=== PATIENT | female | born 1935 | race Caucasian/White ===

== ENCOUNTER 2020-08-15 21:30 | Inpatient (IN) | payer OTHER, SELFPAY ==
[~2020-08-15] VITALS: Ht 165.1 cm; Wt 77.1 kg
--- NOTE | 2020-08-15 21:32 | NUR ---
PT DINORA ALS. TAKEN TO BED 1
[2020-08-15 21:42] VITALS: BP 144/63
--- NOTE | 2020-08-15 22:09 | NUR ---
xr at bedside.
--- NOTE | 2020-08-15 22:14 | NUR ---
Dr. Corley with pt for MSE
--- NOTE | 2020-08-15 22:19 | NUR ---
pt taken to ct via zackery
[2020-08-15] MEDS ORDERED: NACL 0.9% 1,000 ML IV ONE (22:20)
[2020-08-15 22:29] LABS: HEMOGLOBIN 14.6 g/dL (12.0-16.0); PLATELET COUNT (AUTO) 289 K/uL (140-450)
[2020-08-15 22:30] LABS: APPEARANCE,URINE CLEAR (CLEAR); BILIRUBIN,URINE NEGATIVE (NEGATIVE); BLOOD, URINE NEGATIVE (NEGATIVE); COLOR,URINE YELLOW (YELLOW); LEUKOCYTE ESTERASE ,URINE NEGATIVE (NEGATIVE); NITRITE, URINE NEGATIVE (NEGATIVE); PH,URINE 5.5 (5.0-9.0); UGLUCOSE TRACE (NEGATIVE)
[2020-08-15 22:33] LABS: BASOPHILS # (AUTO) 0.1 K/uL (0.00-0.22); BASOPHILS % (AUTO) 0.9 % (0.0-2.0); EOSINOPHILS # (AUTO) 0.2 K/uL (0-0.4); EOSINOPHILS % (AUTO) 2.5 % (0.0-4.0); HEMATOCRIT 41.7 % (36-48); LYMPHOCYTES # (AUTO) 1.6 K/uL (2.5-16.5); LYMPHOCYTES % (AUTO) 21.5 % (20.5-51.1); MEAN CORPUSCULAR HEMOGLOBIN 31 pg (27-31); MEAN CORPUSCULAR HGB CONC 35 g/dL (33-37); MEAN CORPUSCULAR VOLUME 88.3 fL (80-94); MONOCYTES # (AUTO) 0.8 K/uL (0.8-1.0); MONOCYTES % (AUTO) 11.2 % (1.7-9.3); NEUTROPHILS # (AUTO) 4.7 K/uL (1.8-7.7); NEUTROPHILS % (AUTO) 63.9 % (42.2-75.2); RED BLOOD CELL COUNT(AUTO) 4.72 MIL/uL (4.20-5.40); RED CELL DISTRIBUTION WIDTH 12.3 % (11.6-13.7); WHITE BLOOD COUNT (AUTO) 7.3 K/uL (4.8-10.8)
[2020-08-15 22:41] LABS: BARBITURATE, URINE NEGATIVE ng/ml (NEG <=200); BENZODIAZEPINE, URINE NEGATIVE ng/mL (NEG <=200); CANNABINOID, URINE NEGATIVE ng/mL (NEG <=50); COCAINE, URINE NEGATIVE ng/mL (NEG <=300); OPIATE, URINE NEGATIVE ng/mL (NEG <=2000); PHENCYCLIDINE SCREEN,URINE NEGATIVE ng/mL (NEG <=25)
[2020-08-15 22:48] LABS: RBC,URINE 0-5 /HPF (0-5); WBC,URINE 0-5 /HPF (0-5)
[2020-08-15 22:50] LABS: ALBUMIN 3.7 g/dL (3.4-5.0); ANION GAP 10.1 (8-16); ASPARTATE AMINOTRANSFERASE 21 U/L (15-37); CHLORIDE 94 mmol/L (98-107); GLUCOSE 135 mg/dL (74-106); LIPASE 131 U/L (73-393); MAGNESIUM 2.6 mg/dL (1.8-2.4); PHOSPHORUS 5.1 mg/dL (2.5-4.9); POTASSIUM 3.1 mmol/L (3.5-5.1); SODIUM SERUM 130 mmol/L (136-145); TOTAL BILIRUBIN 0.4 mg/dL (0.0-1.0)
[2020-08-15 22:57] LABS: SALICYLATE < 2.8 mg/dL (2.8-20.0)
[2020-08-15 22:58] LABS: CREATININE 4.1 mg/dL (0.6-1.3); UREA NITROGEN, BLOOD 80 mg/dL (7-18)
--- NOTE | 2020-08-15 23:03 | NUR ---
christiana Tirado from [facility] to give report on pt.
[2020-08-15] MEDS ORDERED: SYN.05 PO (23:26)
[2020-08-15] MEDS ORDERED: ISOS60TE70 PO (23:26)
[2020-08-15] MEDS ORDERED: BIOT5000 PO (23:26)
[2020-08-15] MEDS ORDERED: LANTUS SC (23:26)
[2020-08-15] MEDS ORDERED: PANT40EC PO (23:26)
[2020-08-15] MEDS ORDERED: CLOP75TA26 PO (23:26)
[2020-08-15] MEDS ORDERED: NEBI10TA PO (23:28)
[2020-08-15] MEDS ORDERED: LOSA100T1 PO (23:28)
[2020-08-15] MEDS ORDERED: [UNRECOGNIZED DRUG - CODE] PO (23:28)
[2020-08-15] MEDS ORDERED: TTS3 TD (23:28)
--- NOTE | 2020-08-15 23:46 | NUR ---
report given to Jcarols MEZA from [facility] unit. pt currently a/o x 2, gcs 14. IV site patent. will be admitted to room 110B under the care of Dr. Partida.
[2020-08-15 23:54] LABS: ACETAMINOPHEN < 0.5 ug/ml (10-30)
[2020-08-16] MEDS ORDERED: ONDANSETRON 4 MG/2 ML VIAL IM/IVP PRN (00:20)
[2020-08-16] MEDS ORDERED: ZOLPIDEM 5 MG TAB PO PRN (00:20)
[2020-08-16] MEDS ORDERED: DOCUSATE SODIUM 100 MG GELCAP PO PRN (00:20)
[2020-08-16] MEDS ORDERED: HYDROcodone/APAP 7.5/325 MG 1 TAB PO PRN (00:20)
[2020-08-16] MEDS ORDERED: ACETAMINOPHEN 325 MG TAB PO PRN (00:20)
[2020-08-16] MEDS ORDERED: guaiFENesin DM 200/20 MG-10 ML 10 ML UDC PO PRN (00:20)
--- NOTE | 2020-08-16 00:30 | NUR ---
PT ADMITTED TO THE UNIT FROM ED. PATIENT AWAKE AND ALERT. PT ONLY ORIENTED TO SELF AND PLACE. PT DENIES ANY PAIN. PT RECEIVING 2L O2 VIA NC. O2 SAT 98% AT THIS TIME. NO SOB OR S/S OF DISTRESS NOTED. PT PLACED ON TELE MONITORING. BED LOWERED WITH CALL LIGHT WITHIN REACH
[2020-08-16 00:47] LABS: PROTHROMBIN TIME 9.4 secs (10.8-13.4)
[2020-08-16 00:56] LABS: CHOL/HDL RATIO 6.3 (1-4.5); FREE T4 (FREE THYROXINE) 1.14 ng/dL (0.76-1.46); THYROID STIMULATING HORMONE 1.58 uIU/mL (0.34-3.74)
[2020-08-16] MEDS: DEXT 5% / NACL 0.9% 1,000 ML IV SCH ×2 (00:56→09:40)
[2020-08-16 01:00] VITALS: BP 122/62
[2020-08-16] MEDS: POTASSIUM CHLORIDE 10 MEQ TABER PO PRN (01:41)
[2020-08-16 04:30] VITALS: BP 146/63
--- NOTE | 2020-08-16 04:50 | NUR ---
ASSISTED PATIENT TO THE BATHROOM. PT VOIDED WITHOUT ANY DIFFICULTY
--- NOTE | 2020-08-16 07:25 | NUR ---
PT REPORT GIVEN TO AM NURSE. PT ENDORSED IN STABLE CONDITION
--- NOTE | 2020-08-16 07:26 | NUR ---
REPORT RECEIVED FROM FIRE PREVENTION CAPTAIN RN AT BEDSIDE FOR CONTINUITY OF CARE. PATIENT AWAKE AND ALERT. PT ONLY ORIENTED TO SELF AND PLACE. PT DENIES ANY PAIN. PT ON RA, O2 SAT 98% AT THIS TIME. NO SOB OR S/S OF DISTRESS NOTED. PT PLACED ON TELE MONITORING. BED LOWERED WITH CALL LIGHT WITHIN REACH, WILL CONTINUE TO MONITOR PATIENT.
[2020-08-16 08:10] VITALS: BP 150/70
[2020-08-16] MEDS: PANTOPRAZOLE 40 MG TABEC PO SCH (09:23)
--- NOTE | 2020-08-16 09:23 | NUR ---
ORDERED MEDICATION GIVEN. PATIENT TOLERATED IT. PATIENT CURRENTLY SITTING UP IN BED EATING BREAKFAST, NO COMPLAINTS AT THIS TIME. SAFETY PRECAUTIONS IN PLACE, CALL LIGHT WITHIN REACH, WILL CONTINUE TO MONITOR PATIENT.
[2020-08-16 09:52] LABS: BASOPHILS % (AUTO) 0.4 % (0.0-2.0); EOSINOPHILS # (AUTO) 0.1 K/uL (0-0.4); EOSINOPHILS % (AUTO) 2.3 % (0.0-4.0); HEMATOCRIT 38.7 % (36-48); HEMOGLOBIN 13.1 g/dL (12.0-16.0); LYMPHOCYTES # (AUTO) 1.6 K/uL (2.5-16.5); LYMPHOCYTES % (AUTO) 26.1 % (20.5-51.1); MEAN CORPUSCULAR HEMOGLOBIN 31 pg (27-31); MEAN CORPUSCULAR HGB CONC 34 g/dL (33-37); MONOCYTES # (AUTO) 0.7 K/uL (0.8-1.0); MONOCYTES % (AUTO) 11.7 % (1.7-9.3); NEUTROPHILS # (AUTO) 3.6 K/uL (1.8-7.7); NEUTROPHILS % (AUTO) 59.5 % (42.2-75.2); PLATELET COUNT (AUTO) 259 K/uL (140-450); RED BLOOD CELL COUNT(AUTO) 4.26 MIL/uL (4.20-5.40); RED CELL DISTRIBUTION WIDTH 12.5 % (11.6-13.7); WHITE BLOOD COUNT (AUTO) 6.1 K/uL (4.8-10.8)
[2020-08-16 10:26] LABS: CARBON DIOXIDE 25.7 mmol/L (21-32); CHLORIDE 99 mmol/L (98-107); GLUCOSE 201 mg/dL (74-106); POTASSIUM 3.7 mmol/L (3.5-5.1); SODIUM SERUM 135 mmol/L (136-145)
[2020-08-16 10:35] LABS: UREA NITROGEN, BLOOD 69 mg/dL (7-18)
--- NOTE | 2020-08-16 10:45 | NUR ---
GRANDDAUGHTER AT BEDSIDE. PT RESTING IN BED, NO COMPLAINTS AT THIS TIME. TRANSFERRED TO [facility], TELE BOX REMOVED. CALL LIGHT WITHIN REACH, WILL CONTINUE TO MONITOR PATIENT.
--- NOTE | 2020-08-16 14:05 | NUR ---
PATIENT CURRENTLY GETTING US OF KIDNEYS DONE. WILL WAIT FOR RESULTS.
[2020-08-16 16:00] VITALS: BP 158/81
--- NOTE | 2020-08-16 16:45 | NUR ---
PT ACCIDENTALLY DISLODGE IV WHILE ATTEMPTING TO GET OUT OF BED TO GO TO BATHROOM. NEW IV INSERTED ON LEFT WRIST 22G, INTACT, ASYMPTOMATIC, PATENT, INFUSING IVF WELL. PT TOLERATED IT. WILL CONTINUE TO MONITOR PATIENT.
--- NOTE | 2020-08-16 19:05 | NUR ---
REPORT GIVEN AT BEDSIDE. PT SITTING UP IN BED EATING DINNER. PT IN STABLE CONDITION.
--- NOTE | 2020-08-16 20:00 | NUR ---
RECEIVED PATIENT ALERT AND VERBAL BUT CONFUSED ALWAYS TRYING TO GET OUT OF HER BED, GOES BACK AND FORTH THE RESTROOM.
--- NOTE | 2020-08-16 20:30 | NUR ---
BP WAS ELEVATED AT 198/79 MMHG, REPORTED TO Kerry, ORDERED HYDRALAZINE 10 MG IVP, BUT PATIENT WAS ALLERGY WITH IT, ORDER WAS CHANGED TO LOSARTAN 100 MG/TAB X1 AND CONTINUE ALL HER HOME MEDICATIONS NOTED AND CARRIED OUT. CALLED IN TO [facility] TO BE VERIFIED.
[2020-08-16] MEDS ORDERED: LOSARTAN 50 MG TAB PO SCH (22:05)
--- NOTE | 2020-08-16 23:00 | NUR ---
LOSARTAN 100 MG/TAB X1 WAS FINALLY VERIFIED, GIVEN BY MOUTH, AMBIEN 5 MG/TAB WAS ALSO GIVEN, TOLERATED WELL BY THE PATIENT. PATIENT HAS BEEN TRAVELING BACK AND FORTH TO THE RESTROOM EVERY 15 MINUTES TO PEE., URINE SAMPLE WAS COLLECTED AND SENT TO THE LAB.
[2020-08-16] MEDS: LOSARTAN 50 MG TAB PO SCH (23:10)
--- NOTE | 2020-08-17 | NUR ---
BED ALARM GOES OFF, PATIENT WAS TRYING TO GET UP AGAIN TO USE THE BATH ROOM.
[2020-08-17 01:02] LABS: URINE TOTAL PROTEIN 8.4 mg/dL (0-12)
--- NOTE | 2020-08-17 01:44 | NUR ---
PATIENT GOT UP TO USE THE BATHROOM AGAIN.
--- NOTE | 2020-08-17 02:49 | NUR ---
PATIENT GOT UP TO USE THE BATHROOM AGAIN.
[2020-08-17] MEDS: DEXT 5% / NACL 0.9% 1,000 ML IV SCH ×2 (05:40→15:40)
[2020-08-17 06:28] LABS: BASOPHILS % (AUTO) 0.2 % (0.0-2.0); EOSINOPHILS # (AUTO) 0.1 K/uL (0-0.4); EOSINOPHILS % (AUTO) 1.1 % (0.0-4.0); HEMATOCRIT 45.8 % (36-48); HEMOGLOBIN 15.7 g/dL (12.0-16.0); LYMPHOCYTES # (AUTO) 1.3 K/uL (2.5-16.5); LYMPHOCYTES % (AUTO) 18.1 % (20.5-51.1); MEAN CORPUSCULAR HEMOGLOBIN 31 pg (27-31); MEAN CORPUSCULAR HGB CONC 34 g/dL (33-37); MEAN CORPUSCULAR VOLUME 91.3 fL (80-94); MONOCYTES # (AUTO) 0.9 K/uL (0.8-1.0); MONOCYTES % (AUTO) 12.2 % (1.7-9.3); NEUTROPHILS # (AUTO) 4.9 K/uL (1.8-7.7); NEUTROPHILS % (AUTO) 68.4 % (42.2-75.2); PLATELET COUNT (AUTO) 303 K/uL (140-450); RED BLOOD CELL COUNT(AUTO) 5.02 MIL/uL (4.20-5.40); RED CELL DISTRIBUTION WIDTH 12.4 % (11.6-13.7); WHITE BLOOD COUNT (AUTO) 7.2 K/uL (4.8-10.8)
[2020-08-17] MEDS ORDERED: LEVOTHYROXINE 0.05 MG TAB PO SCH (06:30)
[2020-08-17 06:57] LABS: CARBON DIOXIDE 28.6 mmol/L (21-32); CHLORIDE 105 mmol/L (98-107); CREATININE 1.5 mg/dL (0.6-1.3); GLUCOSE 185 mg/dL (74-106); POTASSIUM 3.6 mmol/L (3.5-5.1); SODIUM SERUM 143 mmol/L (136-145); UREA NITROGEN, BLOOD 31 mg/dL (7-18)
--- NOTE | 2020-08-17 07:25 | NUR ---
ALL REPORTS WERE GIVEN, TRANSFER OF CARE ENDORSED.
[2020-08-17 08:06] LABS: T4 (THYROXINE) 8.4 ug/dL (4.5-12.0)
[2020-08-17] MEDS ORDERED: DEXTROSE 50% 50 ML SYR IVP PRN (08:50)
[2020-08-17] MEDS: LOSARTAN 50 MG TAB PO SCH (08:51)
[2020-08-17] MEDS: PANTOPRAZOLE 40 MG TABEC PO SCH (08:51)
[2020-08-17] MEDS: CLOPIDOGREL 75 MG TAB PO SCH (08:51)
[2020-08-17] MEDS: INSULIN LANTUS 100 UNITS/ML 10 ML VIAL SUBQ SCH (08:54)
[2020-08-17] MEDS ORDERED: BIOTIN PO SCH (09:00)
[2020-08-17] MEDS ORDERED: NON-FORMULARY ITEM (Isosorbide Mononitrate (Isosorbide Mononitrate ER) 1 TAB) PO SCH (09:00)
[2020-08-17] MEDS ORDERED: ISOSORBIDE MONONITRATE 30 MG TABER PO SCH ×2 (09:00→18:26)
[2020-08-17] MEDS ORDERED: NEBIVOLOL HCL PO SCH (09:00)
[2020-08-17] MEDS ORDERED: PANTOPRAZOLE 40 MG TABEC PO SCH (09:00)
[2020-08-17] MEDS ORDERED: TOLTERODINE TARTRATE PO SCH (09:00)
[2020-08-17] MEDS ORDERED: cloNIDine-TTS3 0.3 MG/24 HR 1 EA PATCH TD SCH (09:00)
[2020-08-17] MEDS ORDERED: LABETALOL 100 MG/20 ML VIAL IV SCH (09:00)
--- NOTE | 2020-08-17 09:05 | NUR ---
PATIENT HAS BEEN SCREENED AND CATEGORIZED MODERATE NUTRITION RISK. PATIENT WILL BE SEEN WITHIN 3-5 DAYS OF ADMISSION. 08/18/20 08/20/[address]
[2020-08-17 10:37] VITALS: BP 220/78
[2020-08-17] MEDS: BLOOD GLUCOSE MONITORING 1 DEV DEV FS SCH ×3 (11:30→21:00)
[2020-08-17 12:30] VITALS: BP 197/86
[2020-08-17] MEDS: INSULIN LISPRO SLIDING SCALE 100 UNITS/ML VIAL SUBQ PRN ×2 (12:59→20:38)
[2020-08-17] MEDS: LABETALOL 200 MG TAB PO SCH ×2 (13:01→17:56)
--- NOTE | 2020-08-17 16:53 | NUR ---
alert, wide awake, but confused and very disoriented. Reoriented, aware now she is in the hospital, but did not know the name and why able to walk to bathroom, with standby assistance, gait slow but steadyd. 1600, pulled out her iv. 1630 new HL placed on LFA #22, after 2 attemtps. Now asleep.
[2020-08-17 17:40] VITALS: BP 164/85
--- NOTE | 2020-08-17 18:06 | NUR ---
oncoming shift made aware LEVOTHYROXINE HELD FOR 08/18, 08/19
--- NOTE | 2020-08-17 19:30 | NUR ---
RECEIVED REPORT FROM RN DAYSHIFT NURSE AT BEDSIDE FOR CONTINUITY OF CARE, PT LYING IN BED SLEEPING SHE IS ON ROOM AIR WITH IV SITE LEFT F/A 22G INTACT AND RUNNING D5 NORMAL SALINE AT 100MLS/HR. ALL FALLS PRECAUTIONS IN PLACE.
--- NOTE | 2020-08-17 20:00 | NUR ---
PT RECEIVED A VISITOR AT BEDSIDE, FINGERSTICK IS 224. OTHER V/S FOLLOWS: T 97.9 P 83 R 16 B/P 212/81 02 98% ON ROOM AIR. IV FLUIDS OF D5 N/S RUNNING AT 100MLS/HR. ALL FALLS PRECAUTIONS IN PLACE.
--- NOTE | 2020-08-17 20:45 | NUR ---
PT WAS GIVEN 4 UNITS OF HUMALOG PER S/S. PT ALSO GIVEN ORDERED IMDUR 60MG EXTENDED RELEASE TABS. EDUCATION PROVIDED TO PT WHO WITH REINFORCEMENT VERBALIZED UNDERSTANDING. IV FLUIDS RUNNING ORDERED. ALL FALLS PRECAUTIONS IN PLACE.
--- NOTE | 2020-08-17 21:00 | NUR ---
PT AND BELONGINGS MOVED TO ROOM 123A.
--- NOTE | 2020-08-17 23:00 | NUR ---
PT IN BED ASLEEP IV SITE INTACT AND RUNNING D5N/S ORDERED. ALL FALLS PRECAUTIONS IN PLACE.
[2020-08-18] VITALS: BP 112/84
--- NOTE | 2020-08-18 00:15 | NUR ---
FLUID BAG OF D5NS REPLACED AND RUNNING ORDERED. V/S FOLLOWS: T 97.8 P 71 R 18 B/P 133/80 02 94% ON ROOM AIR. PT CONTINUES TO SLEEP RESPIRATIONS EVEN AND UNLABORED ON ROOM AIR, ALL FALLS PRECAUTIONS IN PLACE.
[2020-08-18] MEDS: DEXT 5% / NACL 0.9% 1,000 ML IV SCH ×4 (01:40→23:30)
[2020-08-18 04:00] VITALS: BP 189/94
--- NOTE | 2020-08-18 04:45 | NUR ---
PT B/P WAS HIGH AT 189/94, CALLED VANITA CANSECO TO GIVEN AM BLOOD PRESSURE MEDS EARLY.
[2020-08-18 05:17] LABS: BASOPHILS % (AUTO) 0.3 % (0.0-2.0); EOSINOPHILS # (AUTO) 0.1 K/uL (0-0.4); EOSINOPHILS % (AUTO) 0.8 % (0.0-4.0); HEMATOCRIT 42.5 % (36-48); HEMOGLOBIN 14.4 g/dL (12.0-16.0); LYMPHOCYTES # (AUTO) 1.5 K/uL (2.5-16.5); LYMPHOCYTES % (AUTO) 18.4 % (20.5-51.1); MEAN CORPUSCULAR HEMOGLOBIN 31 pg (27-31); MEAN CORPUSCULAR HGB CONC 34 g/dL (33-37); MEAN CORPUSCULAR VOLUME 91.4 fL (80-94); MONOCYTES % (AUTO) 11.5 % (1.7-9.3); NEUTROPHILS # (AUTO) 5.7 K/uL (1.8-7.7); PLATELET COUNT (AUTO) 272 K/uL (140-450); RED BLOOD CELL COUNT(AUTO) 4.65 MIL/uL (4.20-5.40); RED CELL DISTRIBUTION WIDTH 12.6 % (11.6-13.7); WHITE BLOOD COUNT (AUTO) 8.3 K/uL (4.8-10.8)
[2020-08-18 05:32] LABS: ANION GAP 10.2 (8-16); CARBON DIOXIDE 31.4 mmol/L (21-32); CHLORIDE 104 mmol/L (98-107); CREATININE 1.4 mg/dL (0.6-1.3); GLUCOSE 238 mg/dL (74-106); POTASSIUM 3.6 mmol/L (3.5-5.1); SODIUM SERUM 142 mmol/L (136-145); UREA NITROGEN, BLOOD 27 mg/dL (7-18)
[2020-08-18] MEDS ORDERED: ISOSORBIDE MONONITRATE 30 MG TABER PO ONE (06:18)
[2020-08-18] MEDS: INSULIN LISPRO SLIDING SCALE 100 UNITS/ML VIAL SUBQ PRN ×4 (06:22→20:13)
[2020-08-18] MEDS: BLOOD GLUCOSE MONITORING 1 DEV DEV FS SCH ×4 (06:26→20:08)
[2020-08-18] MEDS: LOSARTAN 50 MG TAB PO SCH (06:27)
[2020-08-18] MEDS: ISOSORBIDE MONONITRATE 30 MG TABER PO SCH ×2 (06:28→20:09)
[2020-08-18] MEDS: LABETALOL 200 MG TAB PO SCH ×3 (06:29→16:55)
[2020-08-18] MEDS ORDERED: LEVOTHYROXINE 0.05 MG TAB PO SCH (06:30)
--- NOTE | 2020-08-18 07:35 | NUR ---
RECEIVED REPORT FROM TRUCK ENGINE ASSEMBLER NURSE. PT IN BED RESTING. PT NOT IN DISTRESS. RESPIRATIONS EVEN AND UNLABORED TO ROOM AIR. ABDOMEN IS SOFT AND NON-TENDER, BOWEL SOUNDS NOTED. SKIN IS WARM, DRY, AND INTACT. PT WITH IV ACCESS ON L FOREARM G22 PATENT AND INTACT. PT DENIES ANY PAIN OR DISCOMFORT AT THIS TIME. NO REQUESTS MADE. PT KEPT COMFORTABLE. CALL LIGHT WITHIN REACH. WILL CONTINUE TO MONITOR.
[2020-08-18 08:00] VITALS: BP 190/92
[2020-08-18] MEDS: TOLTERODINE LA 4 MG CAPER PO SCH (09:03)
[2020-08-18] MEDS: CLOPIDOGREL 75 MG TAB PO SCH (09:04)
[2020-08-18] MEDS: PANTOPRAZOLE 40 MG TABEC PO SCH (09:04)
[2020-08-18] MEDS: INSULIN LANTUS 100 UNITS/ML 10 ML VIAL SUBQ SCH (09:09)
--- NOTE | 2020-08-18 09:10 | NUR ---
VS TAKEN. BP 190/92 HR 90. MD MADE AWARE, ORDER RECEIVED. SCHEDULED MEDS GIVEN ORDERED. WILL CONTINUE TO MONITOR.
[2020-08-18] MEDS ORDERED: LABETALOL 100 MG/20 ML VIAL IVP SCH (09:30)
--- NOTE | 2020-08-18 10:19 | NUR ---
PT AT BEDSIDE
--- NOTE | 2020-08-18 10:50 | NUR ---
REASSESSMENT MADE. BP 193/96 HR 81. MD MADE AWARE, ORDERS RECEIVED. WILL CONTINUE TO MONITOR.
[2020-08-18] MEDS ORDERED: FUROSEMIDE 20 MG TAB PO SCH (11:05)
[2020-08-18] MEDS ORDERED: FUROSEMIDE 20 MG/2 ML VIAL IVP SCH (11:30)
[2020-08-18 12:00] VITALS: BP 210/96
--- NOTE | 2020-08-18 12:04 | NUR ---
DC PLANING: SPOKE WITH PATIENTS DAUGHTER VANITA AND DAUGHTER IN LAW RNOAL BANDA BY PHONE. PATIENT ADMITTED TO [facility] ON 08/09, LEFT AMA ON 08/10. FOLLOWED UP WITH HER PCP ON 08/11, WAS MANAGING WITH LIMITED ASSISTANCE WITH ADL'S AND AMBULATION. DAUGHTER VANITA HAS ASSISTED PATIENT IN HOME FOR YEARS PER HER STATEMENT, ALSO STATES PATIENT WAS ON SERVICE WITH HOSPICE FROM 08/13 TO 08/15. PATIENTS DAUGHTER IN LAW VILLEDA STATES THAT PATIENTS SON PINO IS THE DECISION MAKER, ASKS CM TO SPEAK WITH HER REGARDING DISCHARGE PLANING. DAUGHTER VANITA AND RONAL IN AGREEMENT WITH SNF PLACEMENT, WANTED SPECIFICS ON LENGTH OF STAY AND OUT OF POCKET COST. CM ENDORSED THAT THEY SHOULD SPEAK WITH THE ACCEPTING SNF, HALF AN HOUR SPENT EXPLAINING THAT SNF WOULD HAVE THE DETAILED ANSWERS THEY WANT, VANITA AND RONAL CONTINUED TO STATE THAT THEY HAVE BEEN TOLD THAT PATIENT WILL HAVE 90 DAYS OF MEDICARE COVERED CARE IN THE SNF, CM HAD TO EXPLAIN THAT SKILLED NEED WAS A FACTOR. VANITA AND RONAL REPEATEDLY EXPRESSED THEIR FRUSTRATION REGARDING THIS INFORMATION AND STATED THAT THEY THOUGHT THEY WOULD BE GIVEN MORE INFORMATION ABOUT LOS AND COVERAGE AT SNF. CM AGAIN LET THEM KNOW THAT MEDICARE WILL COVER SKILLED SERVICES AND GAVE THEM AN EXPLANATION OF THAT BUT REITERATED THAT THE SNF WOULD GIVE THEM MORE DETAILED INFORMATION ON LOS OF STAY AND THEIR FINANCIAL RESPONSIBILITY. CONVERSATION ENDED WITH RONAL ASKING THAT CM SPEAK WITH HER REGARDING SNF ACCEPTANCE AND DC ARRANGEMENTS. CM WILL CONTINUE TO FOLLOW FOR NEEDS. Addendum: 08/19/20 at 1247 by Elizabeth Rodgers CM DC PLANNING: SPOKE WITH PATIENTS DAUGHTER IN LAW VILLEDA MULTIPLE TIMES, ORIGINALLY CHOSE [facility] FOR PATIENT PLACEMENT, THEN [facility] AND FINALLY CHOSE [facility]. ENDORSED TO NURSING FERMENTATION SCIENTIST TIME BY GURNEY TRANSPORT ARRANGED BY SNF OF 2:30, PATIENT WILL GO TO ROOM 19. NUMBER TO CALL REPORT IS [phone]. SPOKE WITH PATIENTS SECONDARY, CONFIRMED THAT THEY COVER PATIENTS SNF STAY 100% WITHOUT COPAYS OR DEDUCTIBLES FROM DAY 21 THROUGH 60. AFTER DAY 60 NO COVERAGE, RONAL STATES SHE IS AWARE. CM WILL CONTINUE TO FOLLOW FOR NEEDS.
--- NOTE | 2020-08-18 12:17 | NUR ---
PT EATING LUNCH AT BEDSIDE. SCHEDULED MEDS GIVEN ORDERED. PT DENIES ANY PAIN OR DISTRESS AT THIS TIME. WILL CONTINUE TO MONITOR.
--- NOTE | 2020-08-18 14:20 | NUR ---
PT VOMITING. PRN ZOFRAN GIVEN ORDERED. WILL CONTINUE TO MONITOR.
[2020-08-18 16:00] VITALS: BP 220/103
--- NOTE | 2020-08-18 16:44 | NUR ---
BP 220/[address] WATSON MADE AWARE. INCREASED LABETALOL DOSE AND INSTRUCTED TO GIVE SCHEDULED. PT DENIES ANY DIZZINESS OR CHEST PAIN AT THIS TIME. WILL CONTINUE TO MONITOR.
--- NOTE | 2020-08-18 18:32 | NUR ---
PT EATING DINNER. REASSESSMENT DONE. BP 152/78, HR 77. PT DENIES ANY PAIN OR DISCOMFORT.
--- NOTE | 2020-08-18 19:20 | NUR ---
ENDORSED TO JOHN MEZA FOR CONTINUITY OF CARE
--- NOTE | 2020-08-18 19:25 | NUR ---
RECIEVED BEDSIDE ENDORSEMENT FROM DAY SHIFT RN, PT LYING IN BED EATING DINNER AND RESTING, A&0X2/3, ABLE TO MAKE NEEDS KNOWN AND FOLLOWS COMMANDS, SR ON MONITOR, ON ROOM AIR, VSS, AFEBRILE, SKIN WARM DRY AND INTACT, INCONTINENT, ABLE TO USE RESTROOM WITH ASSISTANCE, LFA 22 G PIV INFUSING D5 NS @ 100MLS/HR, PT SHOWING NO SIGNS OF ACUTE DISTRESS, SAFETY MEASURES IN PLACE, WILL CONTINUE WITH CURRENT POC
[2020-08-18 20:00] VITALS: BP 159/76
--- NOTE | 2020-08-18 20:10 | NUR ---
ADMINISTERED 2100H MEDICATIONS PER MD ORDERS, BLOOD GLUCOSE 250, ADMINISTERED 4 UNITS HUMALOG PER PROTOCOL
--- NOTE | 2020-08-18 23:15 | NUR ---
PT RESTING AND WATCHING TV, NO SIGNS OF ACUTE DISTRESS
[2020-08-19] VITALS: BP 159/69
--- NOTE | 2020-08-19 02:03 | NUR ---
PT ASLEEP AND SHOWING NO SIGNS OF ACUTE DISTRESS
[2020-08-19 04:00] VITALS: BP 105/63
--- NOTE | 2020-08-19 04:21 | NUR ---
PT ASLEEP AND SHOWING NO SIGNS OF ACUTE DISTRESS
[2020-08-19 05:30] LABS: BASOPHILS % (AUTO) 0.4 % (0.0-2.0); EOSINOPHILS # (AUTO) 0.3 K/uL (0-0.4); EOSINOPHILS % (AUTO) 3.4 % (0.0-4.0); HEMATOCRIT 38.6 % (36-48); LYMPHOCYTES # (AUTO) 2.5 K/uL (2.5-16.5); LYMPHOCYTES % (AUTO) 28.6 % (20.5-51.1); MEAN CORPUSCULAR HEMOGLOBIN 31 pg (27-31); MEAN CORPUSCULAR HGB CONC 34 g/dL (33-37); MONOCYTES % (AUTO) 10.9 % (1.7-9.3); NEUTROPHILS % (AUTO) 56.7 % (42.2-75.2); PLATELET COUNT (AUTO) 244 K/uL (140-450); RED BLOOD CELL COUNT(AUTO) 4.19 MIL/uL (4.20-5.40); RED CELL DISTRIBUTION WIDTH 12.6 % (11.6-13.7); WHITE BLOOD COUNT (AUTO) 8.7 K/uL (4.8-10.8)
--- NOTE | 2020-08-19 06:12 | NUR ---
BLOOD GLUCOSE 136, NO COVERAGE NEEDED, PT SHOWING NO SIGNS OF ACUTE DISTRESS
[2020-08-19 06:16] LABS: CARBON DIOXIDE 28.3 mmol/L (21-32); CHLORIDE 107 mmol/L (98-107); CREATININE 1.2 mg/dL (0.6-1.3); GLUCOSE 162 mg/dL (74-106); POTASSIUM 3.3 mmol/L (3.5-5.1); SODIUM SERUM 142 mmol/L (136-145); UREA NITROGEN, BLOOD 20 mg/dL (7-18)
[2020-08-19] MEDS: BLOOD GLUCOSE MONITORING 1 DEV DEV FS SCH ×2 (06:21→11:27)
--- NOTE | 2020-08-19 07:14 | NUR ---
ENDORSED TO DAY SHIFT RN FOR CONTINUITY OF CARE
--- NOTE | 2020-08-19 07:15 | NUR ---
PT RECEIVED FROM COMPO CONVEYOR OPERATOR RN. NO S/S OF DISTRESS. PT ON HIGH FLOW O2 AT 30L, FIO2 55. PT O2 SAT 98. ALL SAFETY MEASURES ARE IN PLACE. CALL LIGHT WITHIN REACH.
[2020-08-19 08:00] VITALS: BP_SYST 113; BP_SYST 190; BP_DIAS 71; BP_DIAS 89
[2020-08-19] MEDS ORDERED: FUROSEMIDE 20 MG TAB PO SCH ×2 (09:00)
[2020-08-19] MEDS ORDERED: ATORVASTATIN 20 MG TAB PO SCH (09:00)
[2020-08-19] MEDS: LOSARTAN 50 MG TAB PO SCH (09:08)
[2020-08-19] MEDS: PANTOPRAZOLE 40 MG TABEC PO SCH (09:08)
[2020-08-19] MEDS: ISOSORBIDE MONONITRATE 30 MG TABER PO SCH (09:09)
[2020-08-19] MEDS: CLOPIDOGREL 75 MG TAB PO SCH (09:10)
[2020-08-19] MEDS: TOLTERODINE LA 4 MG CAPER PO SCH (09:10)
--- NOTE | 2020-08-19 09:10 | NUR ---
MORNING MEDS GIVEN WV MD ORDER. BG IS 212. MORNING INSULIN GIVEN PER MD ORDER. PT TOLERATED. A&O X2, PT ABLE TO MAKE NEEDS KNOWN. ALL SAFETY MEASURES IN PLACE. CALL LIGHT WITHIN REACH.
[2020-08-19] MEDS: LABETALOL 200 MG TAB PO SCH ×2 (09:20→14:03)
[2020-08-19] MEDS: INSULIN LANTUS 100 UNITS/ML 10 ML VIAL SUBQ SCH (09:28)
[2020-08-19] MEDS ORDERED: ISOS20TA13 PO (09:58)
[2020-08-19] MEDS ORDERED: FURO-572 PO (09:58)
[2020-08-19] MEDS ORDERED: METF500T PO (10:18)
--- NOTE | 2020-08-19 10:30 | NUR ---
BP 190/89, THEN 184/60, AWARE.
[2020-08-19 10:38] VITALS: BP 159/82
[2020-08-19] MEDS: POTASSIUM CHLORIDE 10 MEQ TABER PO PRN (11:21)
[2020-08-19] MEDS: INSULIN LISPRO SLIDING SCALE 100 UNITS/ML VIAL SUBQ PRN (11:30)
--- NOTE | 2020-08-19 11:30 | NUR ---
BG IS 201. 4 UNITS OF INSULIN GIVEN PER SLIDING SCALE PER MD ORDER.
[2020-08-19 12:00] VITALS: BP 155/60
--- NOTE | 2020-08-19 13:40 | NUR ---
GAVE REPORT TO JOEL AT [facility]. SHE HAS NO FURTHER QUESTIONS AT THIS TIME. THE PICKUP TIME TO TRANSFER PT IS AROUND 1400. PT AGREES AND UNDERSTANDS THE PLAN.
--- NOTE | 2020-08-19 13:44 | NUR ---
SPOKE WITH DAUGHTER, RONAL. UPDATED HER ON PLAN. SHE AGREED AND HAD NO FURTHER QUESTIONS AT THIS TIME.
--- NOTE | 2020-08-19 14:06 | NUR ---
08/19/20 RD INITIAL ASSESSMENT COMPLETED PLEASE REFER TO NUTRITION ASSESSMENT UNDER CARE ACTIVITY FOR ESTIMATED NUTRITIONAL NEEDS. 1. CONTINUE CARDIAC DIET TOLERATED 2. RECOMMEND TO ADD GLUCENA IN DAILY DIET TO MEET KCAL AND PROTEIN NEEDS 3. RD TO FOLLOW-UP 3-5 DAYS, MODERATE RISK ABDULAZIZ MONTERO, RD
--- NOTE | 2020-08-19 14:50 | NUR ---
PT LEFT VIA GURNEY TO [facility]. DISCHARGE TEACHING PROVIDED TO PT. PT VERBALLY UNDERSTOOD. IV, PT ID BAND, AND TELE REMOVED. PT STABLE.
[2020-08-20] MEDS ORDERED: LEVOTHYROXINE 0.05 MG TAB PO SCH (06:30)
== END 2020-08-19 14:55 | DRG 640 ==
LOC: MED 21:30 → MTU 23:39
PROVIDERS: ADMIT Family Medicine; ATTEND Family Medicine
DX: E86.0 Dehydration (principal); N17.0 Acute kidney failure with tubular necrosis; G93.41 Metabolic encephalopathy; E87.1 Hypo-osmolality and hyponatremia; Z66 Do not resuscitate; E87.6 Hypokalemia; E83.41 Hypermagnesemia; E83.39 Other disorders of phosphorus metabolism; Z20.822 Contact with and (suspected) exposure to COVID-19; I25.10 Atherosclerotic heart disease of native coronary artery without angina pectoris; E78.5 Hyperlipidemia, unspecified; N18.9 Chronic kidney disease, unspecified; E11.22 Type 2 diabetes mellitus with diabetic chronic kidney disease; I12.9 Hypertensive chronic kidney disease with stage 1 through stage 4 chronic kidney disease, or unspecified chronic kidney disease; F03.90 Unspecified dementia, unspecified severity, without behavioral disturbance, psychotic disturbance, mood disturbance, and anxiety; E11.65 Type 2 diabetes mellitus with hyperglycemia; I16.0 Hypertensive urgency; Z86.73 Personal history of transient ischemic attack (TIA), and cerebral infarction without residual deficits; Z90.710 Acquired absence of both cervix and uterus; Z88.8 Allergy status to other drugs, medicaments and biological substances; Z88.1 Allergy status to other antibiotic agents; Z91.018 Allergy to other foods; Z95.1 Presence of aortocoronary bypass graft
CPT/HCPCS: 36415; 70450; 71045; 76770; 80048; 80053; 80305; 81001; 82150; 82570; 82948; 83036; 83690; 83735; 83880; 84100; 84300; 84436; 84439; 84443; 84479; 84484; 85025; 85610; 85730; 87040; 87081; 87086; 93005; 96360; 97112; 97116; 97163-GP; 97530; 99285; G0480; G0482; J1815; J1940; J2405; J3490

== ENCOUNTER 2021-07-06 18:47 | Inpatient (IN) | payer OTHER ==
[~2021-07-06] VITALS: Ht 160 cm; Wt 69.9 kg
[~2021-07-06 18:47] MED LIST: BIOT5000 PO; CARV25TA PO; CLON0.3T9 PO; CLOP75TA26 PO; ISOS20TA13 PO; LANTUS SC; LOSA50TA1 PO; METF-346 PO; PANT40EC PO; SYN.05 PO; [UNRECOGNIZED DRUG - CODE] PO
[2021-07-06 18:56] VITALS: BP 227/192
--- NOTE | 2021-07-06 19:06 | NUR ---
86 Y/O F BIBA C/O SOB AND DIFFICULTY BREATHING. PT IS ON HOSPICE CARE AND DNR. PT WAS STATING AT 84 % ON R/A AT HOME. ALLERGIES: AMLODIPINE, AMPICILLIN, CEPHALEXIN
--- NOTE | 2021-07-06 19:10 | NUR ---
RT AT BEDSIDE
--- NOTE | 2021-07-06 19:12 | NUR ---
GAVE REPORT TO STEVAN MONTANO.
[2021-07-06 19:15] LABS: BASOPHILS # (AUTO) 0.1 K/uL (0.00-0.22); BASOPHILS % (AUTO) 0.8 % (0.0-2.0); EOSINOPHILS % (AUTO) 0.6 % (0.0-4.0); HEMATOCRIT 43.7 % (36-48); HEMOGLOBIN 14.6 g/dL (12.0-16.0); LYMPHOCYTES # (AUTO) 1.5 K/uL (2.5-16.5); LYMPHOCYTES % (AUTO) 20.7 % (20.5-51.1); MEAN CORPUSCULAR HEMOGLOBIN 30 pg (27-31); MEAN CORPUSCULAR HGB CONC 34 g/dL (33-37); MEAN CORPUSCULAR VOLUME 89.7 fL (80-94); MONOCYTES # (AUTO) 0.4 K/uL (0.8-1.0); MONOCYTES % (AUTO) 5.6 % (1.7-9.3); NEUTROPHILS # (AUTO) 5.2 K/uL (1.8-7.7); NEUTROPHILS % (AUTO) 72.3 % (42.2-75.2); PLATELET COUNT (AUTO) 201 K/uL (140-450); RED BLOOD CELL COUNT(AUTO) 4.87 MIL/uL (4.20-5.40); RED CELL DISTRIBUTION WIDTH 13.3 % (11.6-13.7); WHITE BLOOD COUNT (AUTO) 7.2 K/uL (4.8-10.8)
--- NOTE | 2021-07-06 19:18 | NUR ---
RAD AT BEDSIDE
[2021-07-06 19:22] VITALS: BP 239/159
[2021-07-06 19:33] LABS: ALBUMIN 3.4 g/dL (3.4-5.0); ANION GAP 13.3 (8-16); ASPARTATE AMINOTRANSFERASE 66 U/L (15-37); CARBON DIOXIDE 26.4 mmol/L (21-32); CHLORIDE 97 mmol/L (98-107); CREATININE 1.2 mg/dL (0.6-1.3); GLUCOSE 291 mg/dL (74-106); POTASSIUM 4.7 mmol/L (3.5-5.1); SODIUM SERUM 132 mmol/L (136-145); TOTAL BILIRUBIN 0.6 mg/dL (0.0-1.0); UREA NITROGEN, BLOOD 19 mg/dL (7-18)
[2021-07-06] MEDS ORDERED: LABETALOL 100 MG/20 ML VIAL IVP ONE (19:40)
--- NOTE | 2021-07-06 19:41 | NUR ---
PATIENT BP 208/131, RECHECK 193/117. AWARE. ORDERS CARRIED OUT
[2021-07-06 19:49] LABS: PROTHROMBIN TIME 22.8 secs (10.8-13.4)
[2021-07-06] MEDS ORDERED: FUROSEMIDE 40 MG/4 ML VIAL IVP SCH (20:00)
--- NOTE | 2021-07-06 20:30 | NUR ---
ASSISTED WITH [facility] AND REPOSITIONED PATIENT. BLANKETS FOR COMFORT. BED LOW AND LOCKED. THIERRY SIDE RAILS FOR SAFETY. ALL NEEDS MET AT THIS TIME.
--- NOTE | 2021-07-06 20:30 | NUR ---
BP REASSESSED 153/66
--- NOTE | 2021-07-06 20:38 | NUR ---
Note buddy in EDM - 07/07/21 at 0115 by CLIFF # 18 FR Pierre catheter with 10 ml utilizing sterile technique. Immediate return of 100 ml yellow urine noted. Bedside drainage bag placed below level of bladder. Urine sample collected and sent to lab. Pt tolerated procedure well.
--- NOTE | 2021-07-06 20:38 | NUR ---
# 16 FR Pierre catheter with 10 ml utilizing sterile technique. Immediate return of 100 ml yellow urine noted. Bedside drainage bag placed below level of bladder. Urine sample collected and sent to lab. Pt tolerated procedure well.
--- NOTE | 2021-07-06 20:39 | NUR ---
PATIENT URINE COLLECTED AND HANDED TO LAB
--- NOTE | 2021-07-06 20:57 | NUR ---
LAB AT BEDSIDE
--- NOTE | 2021-07-06 21:00 | NUR ---
SPOKE TO DAUGHTER VANITA, UPDATED PATIENT MED REC ON CHART.
--- NOTE | 2021-07-06 21:10 | NUR ---
SWABS COLLECTED AND HANDED TO LAB
[2021-07-06] MEDS ORDERED: CLOP75TA55 PO (21:16)
[2021-07-06] MEDS ORDERED: LEVOFLOXACIN 500 MG/D5W PREMIX 100 ML IV ONE (21:20)
[2021-07-06 21:26] LABS: APPEARANCE,URINE CLEAR (CLEAR); BILIRUBIN,URINE NEGATIVE (NEGATIVE); BLOOD, URINE NEGATIVE (NEGATIVE); COLOR,URINE YELLOW (YELLOW); LEUKOCYTE ESTERASE ,URINE NEGATIVE (NEGATIVE); NITRITE, URINE NEGATIVE (NEGATIVE); PH,URINE 6.5 (5.0-9.0); UGLUCOSE TRACE (NEGATIVE)
--- NOTE | 2021-07-06 21:36 | NUR ---
RT AT BEDSIDE
[2021-07-06] MEDS ORDERED: guaiFENesin DM 200/20 MG-10 ML 10 ML UDC PO PRN (22:45)
[2021-07-06] MEDS ORDERED: ZOLPIDEM 5 MG TAB PO PRN (22:45)
[2021-07-06] MEDS ORDERED: DOCUSATE SODIUM 100 MG GELCAP PO PRN (22:45)
[2021-07-06] MEDS ORDERED: ACETAMINOPHEN 325 MG TAB PO PRN (22:45)
[2021-07-06] MEDS: carvediloL 12.5 MG TAB PO SCH (22:50)
[2021-07-06 23:16] VITALS: BP 208/73
--- NOTE | 2021-07-06 23:17 | NUR ---
RT AT BEDSIDE
[2021-07-06 23:59] LABS: CHOL/HDL RATIO 4.2 (1-4.5); FREE T4 (FREE THYROXINE) 1.24 ng/dL (0.76-1.46); MAGNESIUM 1.9 mg/dL (1.8-2.4); PHOSPHORUS 4.7 mg/dL (2.5-4.9); THYROID STIMULATING HORMONE 1.5 uIU/mL (0.34-3.74)
[2021-07-07] VITALS (13 sets, daily range): BP systolic 106–205; BP diastolic 67–148
--- NOTE | 2021-07-07 00:29 | NUR ---
SPOKE TO STEPHANI BUTTONHOLE MACHINE OPERATOR NURSE. GAVE HER UPDATE.
[2021-07-07] MEDS: INSULIN LANTUS 100 UNITS/ML 10 ML VIAL SUBQ SCH ×2 (00:30→20:54)
--- NOTE | 2021-07-07 01:00 | NUR ---
PATIENT RESTING IN BED AT THIS TIME. BED LOW AND LOCKED AT A 30 DEGREES. THIERRY SIDE RAILS UP FOR SAFETY. ALL NEEDS MET.
--- NOTE | 2021-07-07 03:15 | NUR ---
REPORT GIVEN TO DERRICK LEONARDO.
--- NOTE | 2021-07-07 03:40 | NUR ---
EMPTIED VANCE CATH WITH 1100CC OF URINE.
--- NOTE | 2021-07-07 03:50 | NUR ---
RT AT BEDSIDE
--- NOTE | 2021-07-07 04:00 | NUR ---
PATIENT PULLED OUT IV, AND STATED "I DID IT BECAUSE I WANT TO". PLACED 4X4 GAUZE
--- NOTE | 2021-07-07 04:04 | NUR ---
Patient will be admitted to care of Dre Partida . Admited to ICU. Will go to room 7. Belongings list completed. Report to DERRICK Zhang.
--- NOTE | 2021-07-07 04:05 | NUR ---
Chart checked and completed.
--- NOTE | 2021-07-07 04:10 | NUR ---
ADMITTED THIS 86 YEAR OLD FEMALE PATIENT FROM ER PER [facility] DUE TO GENERALIZED WEAKNESS WITH THE ADMITTING DIAGNOSIS OF ACUTE HEART FAILURE AND HYPERTENSIVE EMERGENCY. ASSISTED IN ICU 7 HOOKED TO RASPBERRY CHECKER, SCOPE SHOWS ON SINUS RHYTHM HR 82/MIN NO ARRHYTHMIAS SEEN. PATIENT AWAKE AND ALERT BUT WITH BOUTS OF CONFUSION. WITH SALINE LOCK ON LEFT AC.; PATENT AND INTACT. ABDOMEN IS SOFT, ACTIVE BOWEL SOUNDS.
--- NOTE | 2021-07-07 04:34 | NUR ---
TRANSFERRED PT FROM ER BED 8 TO ICU BED 7 ON NRB 15LPM. NO SIGNS OF RESPIRATORY DISTRESS AT THIS TIME. SATING 100%BIPAP ON STAND BY. WILL CONTINUE TO MONITOR.
[2021-07-07 05:37] LABS: ANION GAP 7.4 (8-16); CARBON DIOXIDE 32.9 mmol/L (21-32); CHLORIDE 97 mmol/L (98-107); GLUCOSE 202 mg/dL (74-106); POTASSIUM 3.3 mmol/L (3.5-5.1); SODIUM SERUM 134 mmol/L (136-145); UREA NITROGEN, BLOOD 22 mg/dL (7-18)
--- NOTE | 2021-07-07 06:25 | NUR ---
DUE ORAL MEDICATION REFUSED BY THE PATIENT TO TAKE.
[2021-07-07] MEDS: LEVOTHYROXINE 0.05 MG TAB PO SCH (06:30)
--- NOTE | 2021-07-07 06:30 | NUR ---
PATIENT WAS PUT ON 10 LITERS 02/OXYMIZER BY THE RT.
[2021-07-07 06:34] LABS: BASOPHILS % (AUTO) 0.2 % (0.0-2.0); HEMATOCRIT 39.1 % (36-48); HEMOGLOBIN 13.2 g/dL (12.0-16.0); LYMPHOCYTES # (AUTO) 0.6 K/uL (2.5-16.5); LYMPHOCYTES % (AUTO) 11.5 % (20.5-51.1); MEAN CORPUSCULAR HEMOGLOBIN 30 pg (27-31); MEAN CORPUSCULAR HGB CONC 34 g/dL (33-37); MEAN CORPUSCULAR VOLUME 89.1 fL (80-94); MONOCYTES # (AUTO) 0.3 K/uL (0.8-1.0); MONOCYTES % (AUTO) 5.3 % (1.7-9.3); NEUTROPHILS # (AUTO) 4.3 K/uL (1.8-7.7); PLATELET COUNT (AUTO) 149 K/uL (140-450); RED BLOOD CELL COUNT(AUTO) 4.39 MIL/uL (4.20-5.40); WHITE BLOOD COUNT (AUTO) 5.2 K/uL (4.8-10.8)
--- NOTE | 2021-07-07 08:00 | NUR ---
glucose was 141 this morning prior to meal tray. pt is refusing puree food tray at this time.
--- NOTE | 2021-07-07 08:10 | NUR ---
Helga VALDEZ speaking to pt family member Jesus Naidu on phone at this time. son would like to continue hospice care, but states they are unable to care at home for her. will contact case management for possible hospice placement. son also states pt is not vaccinated for covid, pneumonia, or influenza.
[2021-07-07] MEDS: carvediloL 12.5 MG TAB PO SCH (09:00)
[2021-07-07] MEDS ORDERED: LOSARTAN 50 MG TAB PO SCH (09:00)
[2021-07-07] MEDS: CLOPIDOGREL 75 MG TAB PO SCH (09:00)
[2021-07-07] MEDS ORDERED: CLONIDINE HYDROCHLORIDE 0.1 MG TAB PO SCH (09:00)
[2021-07-07] MEDS: PANTOPRAZOLE 40 MG TABEC PO SCH (09:00)
[2021-07-07] MEDS ORDERED: CLONIDINE HCL 0.3 MG PO SCH (09:00)
[2021-07-07] MEDS ORDERED: metFORMIN 500 MG TAB PO SCH (09:00)
[2021-07-07] MEDS ORDERED: ISOSORBIDE DINITRATE 20 MG TAB PO SCH (09:00)
--- NOTE | 2021-07-07 09:00 | NUR ---
pt puree diet at bedside, pt is refusing to eat because "the food has mold and I havent eaten in 3 days". attempted to reorient pt and reassure food did not have mold and offer new food. pt refusing to eat at this time.
--- NOTE | 2021-07-07 09:19 | NUR ---
pt is currently a&ox3 to name, and place. pt states she does not want to take her medications. explained to pt that it is very important due to her blood pressure being high and that her health may worsen, states, "I would rather not take any medications."
--- NOTE | 2021-07-07 10:37 | NUR ---
PATIENT HAS BEEN SCREENED AND CATEGORIZED MODERATE NUTRITION RISK. PATIENT WILL BE SEEN WITHIN 3-5 DAYS OF ADMISSION. BENJAMIN BOYKIN RD Addendum: 07/07/21 at [address] CORRECTION PATIENT HAS BEEN SCREENED AND CATEGORIZED HIGH NUTRITION RISK. PATIENT WILL BE SEEN WITHIN 1-2 DAYS OF ADMISSION. BENJAMIN BOYKIN RD
[2021-07-07] MEDS ORDERED: NITROGLYCERIN 0.4 MG TAB SL PRN (10:40)
[2021-07-07] MEDS ORDERED: ALBUTEROL HFA MDI 90 MCG/ACTUATION 8 GM INH PRN (10:50)
[2021-07-07] MEDS ORDERED: FUROSEMIDE 20 MG/2 ML VIAL IVP SCH (11:51)
[2021-07-07] MEDS ORDERED: AZITHROMYCIN 500 MG in DEXTROSE 5% 250 ML IV SCH (12:00)
[2021-07-07] MEDS: BLOOD GLUCOSE MONITORING 1 DEV DEV FS SCH ×3 (12:00→20:29)
--- NOTE | 2021-07-07 12:41 | NUR ---
DC PLANNIN YRS OLD FEMALE PATIENT WAS ADMITTED FROM HOME WITH A DX OF ACUTE HEART FAILURE, BIPAP AND HYPERTENSIVE EMERGENCY. PATIENT IS DNR ON HOSPICE, HAS A HX OF CVA, DM, HTN, MT AND HYPOTHYROIDISM. CXR SHOWED SEVER BILATERAL PULMONARY CONSOLIDATION PRESENT MULTIFOCAL PNEUMONIA. RAPID COVID TEST NEGATIVE. ADMINISTERED IN ABX ROCEPHIN AZITHROMYCIN AND CONTINUED HOME MEDS. CONSULTED WITH PULMO AND ID. DC PLAN TO GO HOME VS SNF WITH HOSPICE, PER FAMILY REQUEST. CM TO FOLLOW Addendum: 07/07/21 at 1639 by Yenifer Brooke RN DC PLANNING: SPOKE WITH PT'S DAUGHTER VANITA STATED CAN NOT TAKE CARE OF HE MOM ANYMORE AND ASKING TO PLACE HER TO SNF AND ALSO WANTED TO CONTINUE WITH [facility]. CALLED [facility] SPOKE WITH CLEO STATED HE EXPLAINED THAT PATIENT HAS NO SECONDARY AND SNF PLACEMENT WILL BE DIFFICULT HOWEVER CAN PROVIDE BOARDING CARE WITH SOME OUT OF POCKET PAYMENT CM WILL FOLLOW UP. Addendum: 07/09/21 at 1522 by Yenifer Brooke RN DC PLANNING: SPOKE WITH PT'S DAUGHTER VANITA DISCUSSED THE DC PLAN PER VANITA IF [facility] OR ANY OTHER SNF TAKES HER WITH COVID WILL BE OK OTHERWISE THEIR PLAN IS HER NEPHEW WILL COME HOME TO TAKE CARE OF HER AND WILL TAKE HER HOME WITH HOSPICE. CHECKED WITH [facility], [facility], [facility], [facility], [facility] AND CECI RODRIGUEZ. ALL STATED NOT TALKING PATIENT. CM TO FOLLOW Addendum: 07/12/21 at 1435 by Yenifer Brooke RN DC PLANNING: CALLED PATIENT'S SON [phone] SPOKE WITH PINO AND HIS REGARDING DISCHARGE PER PINO HIS NEPHEW WILL COME TO PICK HER UP AT 3 PM .PT WILL BE DISCHARGED HOME WITH [facility] FAXED ALL PAPERWORK TO [facility]. NOTIFIED MICHELLE WEISS CM TO FOLLOW
[2021-07-07] MEDS ORDERED: NACL 0.9% IV ONE ×2 (12:50→13:27)
[2021-07-07] MEDS ORDERED: POTASSIUM CHLORIDE IV ONE ×2 (12:50→13:27)
[2021-07-07] MEDS ORDERED: LIDOCAINE MPF IV ONE ×2 (12:50→13:27)
[2021-07-07] MEDS: NITROGLYCERIN 50 MG/D5W PREMIX 250 ML IV PRN (12:55)
--- NOTE | 2021-07-07 15:14 | NUR ---
07/07/21 RD INITIAL ASSESSMENT COMPLETED PLEASE REFER TO NUTRITION ASSESSMENT UNDER CARE ACTIVITY FOR ESTIMATED NUTRITIONAL NEEDS. 1. CONTINUE PUREE DIET TOLERATED 2. MONITOR BLOOD GLUCOSE LEVELS -IF NOT CONTROLLED, RECOMMEND ADDING CCHO 60GM TO CURRENT DIET 3. RD TO FOLLOW-UP 3-5 DAYS, MODERATE RISK YOUSIF BOYKIN, ALEKS
[2021-07-07] MEDS: FUROSEMIDE 40 MG/4 ML VIAL IVP SCH (16:55)
--- NOTE | 2021-07-07 17:15 | NUR ---
SEEN AND EXAMINED BY DR. RAMIRES. NEW ORDERS RECEIVED.
[2021-07-07] MEDS: INSULIN LISPRO SLIDING SCALE 100 UNITS/ML VIAL SUBQ PRN (17:20)
[2021-07-07] MEDS ORDERED: remdesivir COMMUNICATION ORDER 1 EA MISC MC PRN (19:10)
--- NOTE | 2021-07-07 19:20 | NUR ---
ENDORSED TO DIP STAND LOADER NURSE FOR CONTINUITY OF CARE.
--- NOTE | 2021-07-07 20:00 | NUR ---
RECEIVED REPORT AT BEDSIDE FROM DAY SHIFT DERRICK RICE. PT. IS SHE'S AWAKE AOX2. PT. IV IS ON THE LEFT AND RIGHT AC. PT HAS NITRO DRIP INFUSING IN THE RIGHT PIV. PT UNAWARE SHE HAS COVID AND REQUESTED TO LEAVE HER DOOR OPEN. EXPLAINED TO PT THE SAFETY MEASURE PER COVID. ABDOMEN ROUNDED, SOFT AND NON-TENDER. F/C IN PLACE AND DRAINING LIGHT YELLOW URINE. WILL CONTINUE TO MONITOR. ALL SAFETY MEASURE IN PLACE.
[2021-07-07] MEDS: VITAMIN D 400 IU TAB PO SCH (20:37)
[2021-07-07] MEDS: LOSARTAN 50 MG TAB PO SCH (20:38)
[2021-07-07] MEDS ORDERED: guaiFENesin 600 MG TABER PO SCH (21:00)
--- NOTE | 2021-07-07 21:30 | NUR ---
Pt c/o 0f nausea given zofran with relief
[2021-07-07] MEDS: LEVOFLOXACIN 500 MG/D5W PREMIX 100 ML IV SCH (22:57)
[2021-07-07] MEDS: ONDANSETRON 4 MG/2 ML VIAL IM/IVP PRN (23:45)
[2021-07-08] VITALS (15 sets, daily range): BP systolic 131–197; BP diastolic 68–133
[2021-07-08 06:10] LABS: ANION GAP 7.1 (8-16); CARBON DIOXIDE 37.9 mmol/L (21-32); CHLORIDE 96 mmol/L (98-107); CREATININE 0.8 mg/dL (0.6-1.3); GLUCOSE 135 mg/dL (74-106); SODIUM SERUM 138 mmol/L (136-145); UREA NITROGEN, BLOOD 16 mg/dL (7-18)
[2021-07-08] MEDS: LEVOTHYROXINE 0.05 MG TAB PO SCH (06:24)
[2021-07-08 06:57] LABS: BASOPHILS % (AUTO) 0.4 % (0.0-2.0); EOSINOPHILS % (AUTO) 0.2 % (0.0-4.0); HEMOGLOBIN 14.2 g/dL (12.0-16.0); LYMPHOCYTES % (AUTO) 26.2 % (20.5-51.1); MEAN CORPUSCULAR HEMOGLOBIN 30 pg (27-31); MEAN CORPUSCULAR HGB CONC 34 g/dL (33-37); MEAN CORPUSCULAR VOLUME 88.9 fL (80-94); MONOCYTES # (AUTO) 0.4 K/uL (0.8-1.0); MONOCYTES % (AUTO) 11.5 % (1.7-9.3); NEUTROPHILS # (AUTO) 2.3 K/uL (1.8-7.7); NEUTROPHILS % (AUTO) 61.7 % (42.2-75.2); PLATELET COUNT (AUTO) 147 K/uL (140-450); RED BLOOD CELL COUNT(AUTO) 4.72 MIL/uL (4.20-5.40); RED CELL DISTRIBUTION WIDTH 12.8 % (11.6-13.7); WHITE BLOOD COUNT (AUTO) 3.7 K/uL (4.8-10.8)
--- NOTE | 2021-07-08 07:05 | NUR ---
pt bp was elevated and nirto drip increased to 70
--- NOTE | 2021-07-08 07:20 | NUR ---
RECEIVED PT ALERT AND ORIENTED X2 WITH PERIODS OF CONFUSION. ON O2 AT 10L VIA OXYMIZER. SINUS RHYTHM ON MONITOR. ABD SOFT AND NONDISTENDED. VANCE CATHETER INTACT AND DRAINING TO BSD. PERIPHERAL IV 18 GAUGE INTACT ON RIGHT AC INFUSING NITRO @ 21ML/HR. SAFETY PRECAUTIONS IN PLACE.
[2021-07-08] MEDS: BLOOD GLUCOSE MONITORING 1 DEV DEV FS SCH ×4 (08:29→21:00)
[2021-07-08] MEDS: INSULIN LISPRO SLIDING SCALE 100 UNITS/ML VIAL SUBQ PRN ×3 (08:29→17:22)
[2021-07-08] MEDS: LOSARTAN 50 MG TAB PO SCH ×2 (08:45→21:00)
[2021-07-08] MEDS: NIFEdipine 90 MG TABER PO SCH (08:46)
[2021-07-08] MEDS: POTASSIUM CHLORIDE 10 MEQ TABER PO PRN (08:54)
[2021-07-08] MEDS: PANTOPRAZOLE 40 MG TABEC PO SCH (08:56)
[2021-07-08] MEDS: CLOPIDOGREL 75 MG TAB PO SCH (08:56)
[2021-07-08] MEDS: ATORVASTATIN 20 MG TAB PO SCH (08:57)
[2021-07-08] MEDS: ZINC SULF 220 MG CAP PO SCH (08:57)
[2021-07-08] MEDS: VITAMIN D 400 IU TAB PO SCH ×2 (08:58→21:00)
[2021-07-08] MEDS ORDERED: ATORVASTATIN 20 MG TAB PO SCH (09:00)
[2021-07-08] MEDS ORDERED: ECOTRIN 81 MG TABEC PO SCH (09:00)
[2021-07-08] MEDS: DEXAMETHASONE 4 MG TAB PO SCH (09:00)
[2021-07-08] MEDS: ASCORBIC ACID 500 MG TAB PO SCH (09:00)
[2021-07-08] MEDS: NITROGLYCERIN 50 MG/D5W PREMIX 250 ML IV PRN (09:09)
--- NOTE | 2021-07-08 11:00 | NUR ---
SEEN AND EXAMINED BY DR. LITTLE. REPORTED HIGH BLOOD PRESSURE READINGS.
[2021-07-08] MEDS ORDERED: REMDESIVIR. 200 MG in NACL 0.9% 100 ML IV ONE (12:00)
[2021-07-08] MEDS ORDERED: remdesivir CLINICAL MONITORING 1 EA MISC MC PRN (12:00)
[2021-07-08] MEDS: FUROSEMIDE 40 MG/4 ML VIAL IVP SCH ×2 (12:18→17:37)
--- NOTE | 2021-07-08 15:57 | NUR ---
DC PLANNING PATIENT IS A 86 YR OLD FEMALE ADMITTED TO [facility] ON 07/06 FOR ACUTE HEART FAILURE, BIPAP AND HYPERTENSION EMERGENCY.PATIENT HAS HX OF CVA, DM, HTN, MT AND HYPERTHYROIDISM. LARISSA OUTREACHED TO PATIENTS FAMILY MEMBERS TO GATHER COLLATERAL INFORMATION. SW SPOKE WITH WHO INDICATED THAT PATIENT RESIDES WITH HER AT THE ADDRESS ON FILE. MS. JERNIGAN REPORTS THAT SHE IS PATIENTS CAREGIVER AND RECEIVES 60HRS/MONTHLY THAT IS PAID BY PATIENTS PRIVATE INSURANCE, [employer]. MS. JERNIGAN REPORTS THAT PREVIOUS TO THIS VISIT, PATIENT WAS AMBULATORY WITH ASSISTANCE;WALKER, BATH CHAIR, GLUCOMETER AND REQUIRES ASSISTANCE WITH ADL'S. MS. VILLA REPORTS THAT SHE IS UNABLE TO CONTINUE PROVIDING CARE FOR PATIENT, FAMILY IS REQUESTING PATIENT BE PLACED IN A SNF/BOARD AND CARE AND RESUME HOSPICE CARE. PATIENT HAS BEEN IN HOSPICE CARE SINCE OCT 27-JUNE 27'. FAMILY ( & PINO BANDA) REPORTED THEY WOULD RESUME HOSPICE SERVICE WITH [facility] ONCE CLIENT IS DC. MS. VILLA REPORTS THAT PATIENT MEETS WITH PCP, DR. RODRIGUEZ, CONSISTENTLY EVERY THREE MONTHS. LAST VISIT WAS LAST MONTH, WITH NEXT VISIT SCHEDULED FOR 07/19. TENTATIVE DC PLAN IS TO IDENTIFY OUT OF HOME PLACEMENT AND FOR PATIENT TO RESUME HOSPICE CARE.
[2021-07-08] MEDS ORDERED: KCL 20 MEQ/WATER INJ PREMIX 200 ML IV ONE (16:00)
--- NOTE | 2021-07-08 16:30 | NUR ---
SEEN AND EXAMINED BY DR. YORK. NEW ORDERS RECEIVED FOR HIGH BLOOD PRESSURE.
[2021-07-08] MEDS: carvediloL 12.5 MG TAB PO SCH (16:45)
[2021-07-08] MEDS: SPIRONOLACTONE 25 MG TAB PO SCH (17:37)
--- NOTE | 2021-07-08 19:20 | NUR ---
RECEIVED REPORT AT BEDSIDE FROM DAYSHIFT RN FOR CONTINUITY OF CARE. PT IN BED WATCHING TV IN HIGH FOWLERS POSITION. PT AOx3 (PERSON, TIME, AND SITUATION) ABLE TO LET NEEDS KNOWN WITH PERIODS OF CONFUSION. ON OXIMIZER @3L WITH 02 SATURATION OF 97%. LUNG SOUNDS DIMINISHED THROUGHOUT WITH SHALLOW DEPTH NOTED AND A RR OF 17. 20G TO LT HAND, PATENT AND INTACT, INFUSING NS @5ML/HR. VANCE CATHETER ALREADY IN PLACE AT BEDSIDE AND DRAINING CLEAR YELLOW URINE TO GRAVITY. INITIAL ASSESSMENT COMPLETED. ALL SAFETY MEASURES IN PLACE WITH BED IN LOWEST POSITION AND CLL LIGHT WITHIN REACH. WILL CONTINUE TO MONITOR.
[2021-07-08] MEDS: INSULIN LANTUS 100 UNITS/ML 10 ML VIAL SUBQ SCH (21:00)
--- NOTE | 2021-07-08 21:00 | NUR ---
SCHEDULED MEDS ADMIN ORDERED. NADR NOTED. VSS. PT ASSISTED WITH TURNING AND REPOSITIONING. WILL CONTINUE TO MONITOR.
[2021-07-08] MEDS: LEVOFLOXACIN 500 MG/D5W PREMIX 100 ML IV SCH (22:00)
--- NOTE | 2021-07-08 23:14 | NUR ---
RECEIVED REPORT AT BEDSIDE FROM LEODAN RN FOR CONTINUITY OF CARE. PT IN BED WATCHING TV IN HIGH FOWLERS POSITION. PT AOx3 (PERSON, TIME, AND SITUATION) ABLE TO LET NEEDS KNOWN WITH PERIODS OF CONFUSION. ON OXIMIZER @3L WITH 02 SATURATION OF 97%. LUNG SOUNDS DIMINISHED THROUGHOUT WITH SHALLOW DEPTH NOTED AND A RR OF 17. 20G TO LT HAND, PATENT AND INTACT, INFUSING NS @5ML/HR. VANCE CATHETER ALREADY IN PLACE AT BEDSIDE AND DRAINING CLEAR YELLOW URINE TO GRAVITY. INITIAL ASSESSMENT COMPLETED. ALL SAFETY MEASURES IN PLACE WITH BED IN LOWEST POSITION AND CLL LIGHT WITHIN REACH. WILL CONTINUE TO MONITOR. Addendum: 07/08/21 at 2319 by Reynaldo Malcolm RN INCORRECT TIME
[2021-07-09] VITALS (9 sets, daily range): BP systolic 128–173; BP diastolic 70–91
--- NOTE | 2021-07-09 00:18 | NUR ---
LEAK TO LT HAND IV OBSERVED. LT HAND IV DC. NEW IV TO LT AC 22G INSERTED, INFUSING WELL WITHOUT PAIN OR SWELLING TO AREA. TOLERATED WELL. WILL CONTINUE TO MONITOR.
--- NOTE | 2021-07-09 04:25 | NUR ---
LAB AT BEDSIDE FOR AM DRAW
[2021-07-09 06:11] LABS: BASOPHILS % (AUTO) 0.2 % (0.0-2.0); EOSINOPHILS % (AUTO) 0.2 % (0.0-4.0); HEMATOCRIT 45.3 % (36-48); HEMOGLOBIN 15.4 g/dL (12.0-16.0); LYMPHOCYTES # (AUTO) 0.9 K/uL (2.5-16.5); LYMPHOCYTES % (AUTO) 21.9 % (20.5-51.1); MEAN CORPUSCULAR HEMOGLOBIN 30 pg (27-31); MEAN CORPUSCULAR HGB CONC 34 g/dL (33-37); MEAN CORPUSCULAR VOLUME 88.4 fL (80-94); MONOCYTES # (AUTO) 0.7 K/uL (0.8-1.0); MONOCYTES % (AUTO) 15.3 % (1.7-9.3); NEUTROPHILS # (AUTO) 2.6 K/uL (1.8-7.7); NEUTROPHILS % (AUTO) 62.4 % (42.2-75.2); PLATELET COUNT (AUTO) 146 K/uL (140-450); RED BLOOD CELL COUNT(AUTO) 5.12 MIL/uL (4.20-5.40); WHITE BLOOD COUNT (AUTO) 4.3 K/uL (4.8-10.8)
[2021-07-09] MEDS: LEVOTHYROXINE 0.05 MG TAB PO SCH (06:30)
[2021-07-09 07:08] LABS: ALBUMIN 3.5 g/dL (3.4-5.0); BILIRUBIN,DIRECT 0.2 mg/dL (0.0-0.3); TOTAL BILIRUBIN 0.7 mg/dL (0.0-1.0)
[2021-07-09 07:26] LABS: ANION GAP 12.5 (8-16); CARBON DIOXIDE 32.8 mmol/L (21-32); CHLORIDE 96 mmol/L (98-107); CREATININE 0.9 mg/dL (0.6-1.3); GLUCOSE 122 mg/dL (74-106); POTASSIUM 3.3 mmol/L (3.5-5.1); SODIUM SERUM 138 mmol/L (136-145); UREA NITROGEN, BLOOD 21 mg/dL (7-18)
--- NOTE | 2021-07-09 07:30 | NUR ---
RECEIVED REPORT FROM SARMAD MATHIS RN FOR CONTINUITY OF CARE.
[2021-07-09] MEDS: BLOOD GLUCOSE MONITORING 1 DEV DEV FS SCH ×4 (07:43→22:45)
--- NOTE | 2021-07-09 07:45 | NUR ---
PT A&OX1 (TO PERSON ONLY). ABLE TO VERBALIZE NEEDS BUT NOT STATE TIME, PLACE OR DATE. PERRLA. ON OXIMISER @ 3L WITH SATURATIONS OF 98%. LUNG SOUNDS DIMINISHED THROUGHOUT WITH NON-PRODUCTIVE INTERMITTENT COUGH. SR WITH PVCS. 22 G TO LEFT AC INTACT AND INFUSING NS @ 5 ML/HR. BOWEL SOUNDS ACTIVE. VANCE CATHETER ALREADY IN PLACE DRAINING CLEAR YELLOW URINE TO GRAVITY. DROPLET PRECAUTIONS IN PLACE FOR COVID ISOLATION. SAFETY AND FALL PRECAUTIONS IN PLACE, CALL LIGHT WITHIN REACH, BED IN LOWEST POSITION.
[2021-07-09] MEDS: FUROSEMIDE 40 MG/4 ML VIAL IVP SCH ×2 (08:38→17:15)
[2021-07-09] MEDS: PANTOPRAZOLE 40 MG INJ VIAL IVP SCH (08:39)
[2021-07-09] MEDS: ASPIRIN 81 MG TAB.CHEW PO SCH (08:40)
[2021-07-09] MEDS: NIFEdipine 90 MG TABER PO SCH (08:40)
[2021-07-09] MEDS: VITAMIN D 400 IU TAB PO SCH ×2 (08:41→21:00)
[2021-07-09] MEDS: ZINC SULF 220 MG CAP PO SCH (08:41)
[2021-07-09] MEDS: DEXAMETHASONE 4 MG TAB PO SCH (08:41)
[2021-07-09] MEDS: SPIRONOLACTONE 25 MG TAB PO SCH ×2 (08:42→17:15)
[2021-07-09] MEDS: LOSARTAN 50 MG TAB PO SCH ×2 (08:42→22:45)
[2021-07-09] MEDS: carvediloL 12.5 MG TAB PO SCH ×2 (08:43→22:45)
[2021-07-09] MEDS: ASCORBIC ACID 500 MG TAB PO SCH (08:43)
[2021-07-09] MEDS: CLOPIDOGREL 75 MG TAB PO SCH (08:44)
[2021-07-09] MEDS: ATORVASTATIN 20 MG TAB PO SCH (08:45)
--- NOTE | 2021-07-09 09:30 | NUR ---
SEEN AND EXAMINED BY RESIDENT .
--- NOTE | 2021-07-09 11:12 | NUR ---
WOUND CARE NOTE: PT. ADMITTED WITH COVID POSITIVE WITH 3L O2 OXYMIZER. PT. ADMITTED WITH BLANCHABLE REDNESS TO SACRALCOCCYX AND SCRATCH BLOOM TO LEFT BUTTOCK, PT. ON SIDE LYING POSITION, SACRAL OFFLOADING. POC DISCUSSED WITH PRIMARY RN. POTENTIAL COVID RELATED SKIN FAILURE DUE TO TISSUE LESS TOLERATE TO PRESSURE, SHEARING AND POSSIBLE ASSOCIATED WITH MICROVASCULAR INJURY AND HYPOXIA. RECOMMENDATIONS: -APPLY HYDRAGUARD TO SACRALCOCCYX BID AND PRN IF SOILING -POSITIONING: TURN AND REPOSITION PATIENT Q 2H OR SOONER USE PILLOWS TO KEEP BONY PROMINENCES FROM DIRECT CONTACT WITH SURFACES USE REPOSITIONING WEDGES TO PROVIDE 30-DEGREE ANGLE FOR SIDE LYING POSITIONS OFFLOADING OR FOAM DRESSING TO ALL TUBING TO PREVENT MEDICAL DEVICES RELATED PRESSURE INJURY -RE-EVALUATING AND MANAGING INCONTINENCE MONITOR SKIN CONDITION DURING POSITION CHANGE DO NOT MASSAGE REDNESS, BONY PROMINENCES, DO NOT USE DONUT-TYPE DEVICES FREQUENT CONCHA-CARE AND PROVIDE BARRIER CREAMS PRN IF SOILING MOISTURE CONTROL BY OFFER BED WHITMAN/URINAL /ABSORBENT PAD TO WICK AND HOLD MOISTURE. KEEP SKIN DRY AND PROTECT FROM FRICTION -MANAGE FRICTION/SHEAR/MOBILITY KEEP HOB AT THE LOWEST LEVEL OF ELEVATION NO MORE THAN 30 DEGREE UNLESS OTHERWISE CONTRAINDICATED USE LIFT SHEET OR TRANSFER DEVICE TO MOVE PATIENT AND PREVENT LATERAL SHEER. PROTECT HEELS, ELBOWS BONY PROMINENCES WITH SKIN BERRIES OR FOAM DRESSING IF EXPOSED TO FRICTION OFFLOAD BILATERAL HEELS BY PLACING PILLOWS UNDER CALVES AT ALL TIMES, UNLESS OTHERWISE CONTRAINDICATED -PRESSURE REDISTRIBUTION SURFACE THERAPY DOMONIQUE ISOFLEX MATTRESS -NUTRITION: PLEASE FOLLOW RD RECOMMENDATIONS AND OFFER NUTRITION SUPPLEMENTS IF ORDERED.
--- NOTE | 2021-07-09 12:00 | NUR ---
GAVE REPORT TO DEISY JAMES RN FOR CONTINUITY OF CARE.
[2021-07-09] MEDS: INSULIN LISPRO SLIDING SCALE 100 UNITS/ML VIAL SUBQ PRN ×2 (12:05→17:24)
[2021-07-09] MEDS: REMDESIVIR. 100 MG in NACL 0.9% 100 ML IV SCH (12:06)
[2021-07-09] MEDS: HYDRAGUARD CREAM TP SCH ×2 (13:00→22:45)
--- NOTE | 2021-07-09 13:00 | NUR ---
PT TRANSFERRED TO [facility] WITH ASSISTANCE OF TYRON MEZA AND KIRILL BURNETT.
--- NOTE | 2021-07-09 13:00 | NUR ---
RECEIVED PT CARE AND REPORT FROM SHARAN ICU NURSE. PT ARRIVED ON UNIT VIA BED ACCOMPANIED BY SHARAN RN. PT IS A&OX2, APPEARS MILDLY AGITATED. NO VISIBLE S/S OF DISTRESS OR DISCOMFORT. DENIES ANY PAIN OR SOB. RECEIVING 3L O2 VIA OXIMIZER. LEFT AC 22G IV RUNNING REMDESEVIR PIGGYBACK. HR: 86, BP: 111/70, TEMP: 98.3, RR: 19. WILL CONTINUE CARE OF PATIENT.
[2021-07-09] MEDS: POTASSIUM CHLORIDE 10 MEQ TABER PO PRN (13:57)
--- NOTE | 2021-07-09 17:42 | NUR ---
P.T. NOTES P.T. EVAL COMPLETED; REFER TO EVAL FOR DETAILS.
--- NOTE | 2021-07-09 17:49 | NUR ---
COVID TEST COLLECTED. WILL BE DROPPED OFF BY AUCTION BLOCK CLERK KATELYN.
[2021-07-09] MEDS: HYDROcodone/APAP 7.5/325 MG 1 TAB PO PRN (18:11)
[2021-07-09] MEDS: INSULIN LANTUS 100 UNITS/ML 10 ML VIAL SUBQ SCH (22:45)
[2021-07-09] MEDS: LEVOFLOXACIN 500 MG/D5W PREMIX 100 ML IV SCH (22:45)
--- NOTE | 2021-07-09 23:45 | NUR ---
Medication was crushed and mixed in applesauce for easy swallowing, as she's has some trouble swallowing whole pills. Pt took a few swallows and would not finish taking reminding of pills in applesauce. Unable to clarice how much of each med was taken. Vit.D 250mg, Coreg 25mg, cozaar 50mg and norco was given. BP was 180/88 HR 97 O2 92% MD Villalba notified and made aware of event regarding medication administration and BP. Labetalol 5mg IV push given one time dose. 2RN check. Ativan 0.5 given for increasing agitation. All safety precautions in place.
[2021-07-10] VITALS (11 sets, daily range): BP systolic 134–213; BP diastolic 73–107
[2021-07-10] MEDS ORDERED: LABETALOL 100 MG/20 ML VIAL IVP ONE (01:15)
[2021-07-10] MEDS ORDERED: LORazepam 2 MG/ML VIAL IVP PRN (01:15)
[2021-07-10] MEDS ORDERED: LABETALOL 100 MG/20 ML VIAL ONE (01:34)
--- NOTE | 2021-07-10 04:54 | NUR ---
BP elevated MD Villalba notified regarding BP 211/107 HR 86 O2 94% RA. PT had an episode of vomiting X1 . order for pt to transfer to ICU and placed on Nitro drip. Med charge aware. ICU supercharger repair supervisor called awaiting bed.
[2021-07-10] MEDS ORDERED: LABETALOL 100 MG/20 ML VIAL IV ONE (05:30)
--- NOTE | 2021-07-10 05:33 | NUR ---
phone call to dr jose luis darling, car unloader helper, updated on pts present condition.made aware pts bp 160/96 right now; previous bp reading 177/74 hr 84 pt already given labetalol 10mg at 0144, physician ordered another dose of labetalol 10mg x 1.Jaime,charge nurse aware
[2021-07-10] MEDS: HYDROcodone/APAP 7.5/325 MG 1 TAB PO PRN (05:36)
[2021-07-10] MEDS ORDERED: CLINDAMYCIN 600 MG/4 ML VIAL ONE (05:43)
[2021-07-10] MEDS ORDERED: CLONIDINE HYDROCHLORIDE 0.1 MG TAB PO ONE (06:00)
[2021-07-10] MEDS: CLINDAMYCIN 600 MG in DEXTROSE 5% 50 ML IV SCH ×3 (06:09→20:16)
[2021-07-10] MEDS: LEVOTHYROXINE 0.05 MG TAB PO SCH (06:11)
[2021-07-10 07:10] LABS: ANION GAP 11.4 (8-16); CARBON DIOXIDE 31.8 mmol/L (21-32); CHLORIDE 97 mmol/L (98-107); CREATININE 0.8 mg/dL (0.6-1.3); GLUCOSE 152 mg/dL (74-106); POTASSIUM 3.2 mmol/L (3.5-5.1); SODIUM SERUM 137 mmol/L (136-145); UREA NITROGEN, BLOOD 21 mg/dL (7-18)
[2021-07-10 07:25] LABS: ALBUMIN 3.6 g/dL (3.4-5.0); BILIRUBIN,DIRECT 0.2 mg/dL (0.0-0.3); TOTAL BILIRUBIN 0.6 mg/dL (0.0-1.0)
--- NOTE | 2021-07-10 07:30 | NUR ---
RECEIVED PATIENT REPORT FROM TEXTILE MACHINE MECHANIC NURSE FOR CONTINUITY OF CARE. PT IS AOX1, NEEDS REORIENTATION BUT ABLE TO MAKE NEEDS KNOWN. RESPIRATIONS EVEN AND UNLABORED. ON ROOM AIR WITH O2 SATURATION AT 94%. NO DISTRESS NOTED. SKIN IS WARM, DRY, AND INTACT. REDNESS ON SACRAL BOTTOM. IV SITE ON LAC 22G. SALINE LOCKED. PLAN OF CARE DISCUSSED. SAFETY PRECAUTIONS IN PLACE. BED IN LOW POSITION. WILL CONTINUE TO MONITOR.
[2021-07-10] MEDS: BLOOD GLUCOSE MONITORING 1 DEV DEV FS SCH ×4 (08:39→20:16)
[2021-07-10] MEDS: INSULIN LISPRO SLIDING SCALE 100 UNITS/ML VIAL SUBQ PRN ×3 (08:40→20:21)
--- NOTE | 2021-07-10 08:40 | NUR ---
BS CHECK WAS 173. DID NOT ADMINISTER INSULIN DUE TO PATIENT REFUSING TO EAT BREAKFAST.
[2021-07-10] MEDS ORDERED: CLONIDINE HYDROCHLORIDE 0.1 MG TAB PO PRN (08:50)
[2021-07-10] MEDS: ATORVASTATIN 20 MG TAB PO SCH (09:57)
[2021-07-10] MEDS: NIFEdipine 90 MG TABER PO SCH (09:57)
[2021-07-10] MEDS: carvediloL 12.5 MG TAB PO SCH ×2 (09:58→20:17)
[2021-07-10] MEDS: SPIRONOLACTONE 25 MG TAB PO SCH ×2 (09:59→17:45)
[2021-07-10] MEDS: VITAMIN D 400 IU TAB PO SCH ×2 (09:59→20:17)
[2021-07-10] MEDS: ASCORBIC ACID 500 MG TAB PO SCH (09:59)
[2021-07-10] MEDS: CLOPIDOGREL 75 MG TAB PO SCH (10:00)
[2021-07-10] MEDS: LOSARTAN 50 MG TAB PO SCH ×2 (10:00→20:17)
[2021-07-10] MEDS: DEXAMETHASONE 4 MG TAB PO SCH (10:00)
[2021-07-10] MEDS: ASPIRIN 81 MG TAB.CHEW PO SCH (10:00)
[2021-07-10] MEDS: ZINC SULF 220 MG CAP PO SCH (10:00)
[2021-07-10] MEDS: FUROSEMIDE 40 MG/4 ML VIAL IVP SCH ×2 (10:00→17:44)
[2021-07-10] MEDS: PANTOPRAZOLE 40 MG INJ VIAL IVP SCH (10:00)
[2021-07-10] MEDS ORDERED: POTASSIUM CHLORIDE 40 MEQ, LIDOCAINE MPF 1% 25 MG in NACL 0.9% 250 ML IV PRN (10:45)
--- NOTE | 2021-07-10 12:38 | NUR ---
BS CHECK WAS 182. ADMINISTERED 2 UNITS OF INSULIN PER MD ORDERED.
[2021-07-10] MEDS: HYDRAGUARD CREAM TP SCH (12:42)
[2021-07-10] MEDS ORDERED: hydrALAZINE 25 MG TAB PO SCH (13:00)
[2021-07-10] MEDS: REMDESIVIR. 100 MG in NACL 0.9% 100 ML IV SCH (13:13)
[2021-07-10 13:50] LABS: BASOPHILS % (AUTO) 0.7 % (0.0-2.0); EOSINOPHILS % (AUTO) 0.1 % (0.0-4.0); HEMATOCRIT 47.9 % (36-48); HEMOGLOBIN 16.1 g/dL (12.0-16.0); LYMPHOCYTES # (AUTO) 0.8 K/uL (2.5-16.5); LYMPHOCYTES % (AUTO) 22.9 % (20.5-51.1); MEAN CORPUSCULAR HEMOGLOBIN 30 pg (27-31); MEAN CORPUSCULAR HGB CONC 34 g/dL (33-37); MEAN CORPUSCULAR VOLUME 88.5 fL (80-94); MONOCYTES % (AUTO) 28.3 % (1.7-9.3); NEUTROPHILS # (AUTO) 1.8 K/uL (1.8-7.7); PLATELET COUNT (AUTO) 182 K/uL (140-450); RED BLOOD CELL COUNT(AUTO) 5.41 MIL/uL (4.20-5.40); RED CELL DISTRIBUTION WIDTH 13.2 % (11.6-13.7); WHITE BLOOD COUNT (AUTO) 3.7 K/uL (4.8-10.8)
--- NOTE | 2021-07-10 14:30 | NUR ---
CHECKED ON PATIENT. PT IS STABLE. NO DISTRESS NOTED. WILL CONTINUE TO MONITOR.
--- NOTE | 2021-07-10 17:44 | NUR ---
CHECKED ON BS. BS 182. PT DOES NOT HAVE AN APPETITE, DOES NOT WANT TO EAT. DID NOT ADMINISTER INSULIN COVERAGE
--- NOTE | 2021-07-10 19:30 | NUR ---
RECEIVED BEDSIDE REPORT FROM DAY SHIFT RN FOR CONTINUITY OF CARE. PT IS AWAKE. PT IS NOT IN ANY ACUTE [id number]. PT IS ON NC 2L. PT PULLED OUT IV AND GOT A NEW ONE INSERTED ON LEFT HAND 22 GAUGE. NO COMPLAINS FORM THE PT. ALL SAFETY MEASURES TAKEN. WILL CONTINUE TO MONITOR THE PT.
--- NOTE | 2021-07-10 19:35 | NUR ---
ENDORSED TO EMAIL SPECIALIST NURSE FOR CONTINUITY OF CARE. PT IS STABLE.
[2021-07-10] MEDS: INSULIN LANTUS 100 UNITS/ML 10 ML VIAL SUBQ SCH (20:19)
--- NOTE | 2021-07-10 20:43 | NUR ---
ALL DUE MEDS GIVEN. NO ADVERSE REACTION NOTED. WILL CONTINUE TO MONITOR THE PT.
[2021-07-10] MEDS: LEVOFLOXACIN 500 MG/D5W PREMIX 100 ML IV SCH (23:17)
[2021-07-11] VITALS: BP 132/78
[2021-07-11] MEDS: HYDRAGUARD CREAM TP SCH ×2 (01:00→13:26)
--- NOTE | 2021-07-11 02:30 | NUR ---
PT PULL OUT IV. CATHETER INTACT. WILL TRY TO PLACE A NEW ONE.
[2021-07-11 04:00] VITALS: BP 125/74
[2021-07-11] MEDS ORDERED: CLINDAMYCIN 600 MG/4 ML VIAL ONE (04:17)
--- NOTE | 2021-07-11 04:45 | NUR ---
PT GOT NEW IV INSERTED 24 GAUGE. PT WAS EDUCATED ON THE REASONS TO NOT PULL IV. NO COMPLAINS FORM THE PT. WILL CONTINUE TO MONITOR.
[2021-07-11] MEDS: CLINDAMYCIN 600 MG in DEXTROSE 5% 50 ML IV SCH ×3 (05:15→21:00)
[2021-07-11 05:53] LABS: BASOPHILS % (AUTO) 0.2 % (0.0-2.0); EOSINOPHILS % (AUTO) 0.2 % (0.0-4.0); HEMATOCRIT 45.9 % (36-48); HEMOGLOBIN 15.7 g/dL (12.0-16.0); LYMPHOCYTES # (AUTO) 1.1 K/uL (2.5-16.5); LYMPHOCYTES % (AUTO) 26.1 % (20.5-51.1); MEAN CORPUSCULAR HEMOGLOBIN 30 pg (27-31); MEAN CORPUSCULAR HGB CONC 34 g/dL (33-37); MEAN CORPUSCULAR VOLUME 87.6 fL (80-94); MONOCYTES # (AUTO) 0.8 K/uL (0.8-1.0); NEUTROPHILS # (AUTO) 2.3 K/uL (1.8-7.7); NEUTROPHILS % (AUTO) 54.3 % (42.2-75.2); PLATELET COUNT (AUTO) 178 K/uL (140-450); RED BLOOD CELL COUNT(AUTO) 5.23 MIL/uL (4.20-5.40); WHITE BLOOD COUNT (AUTO) 4.2 K/uL (4.8-10.8)
[2021-07-11 05:58] LABS: ANION GAP 9.7 (8-16); CARBON DIOXIDE 33.3 mmol/L (21-32); CHLORIDE 97 mmol/L (98-107); CREATININE 0.9 mg/dL (0.6-1.3); GLUCOSE 134 mg/dL (74-106); SODIUM SERUM 137 mmol/L (136-145); UREA NITROGEN, BLOOD 26 mg/dL (7-18)
[2021-07-11 06:10] LABS: ALBUMIN 3.2 g/dL (3.4-5.0); BILIRUBIN,DIRECT 0.2 mg/dL (0.0-0.3); TOTAL BILIRUBIN 0.5 mg/dL (0.0-1.0)
[2021-07-11] MEDS: LEVOTHYROXINE 0.05 MG TAB PO SCH (06:27)
[2021-07-11] MEDS: BLOOD GLUCOSE MONITORING 1 DEV DEV FS SCH ×4 (06:46→21:24)
[2021-07-11 07:13] LABS: MONOCYTES % (AUTO) 19.2 % (1.7-9.3)
--- NOTE | 2021-07-11 07:25 | NUR ---
ENDORSED PT TO DAY SHIFT RN FOR CONTINUITY OF CARE. PT IS STABLE.
[2021-07-11 08:00] VITALS: BP 141/77
--- NOTE | 2021-07-11 08:00 | NUR ---
PT CURRENTLY ON ROOM AIR. SHE TAKES OFF HER 2L NASAL CANNULA. SATURATION ON ROOM AIR IS LOW 90S.
--- NOTE | 2021-07-11 08:03 | NUR ---
RECEIVED ENDORSEMENT FROM PM SHIFT NURSE THAT PATIENT REST IN BED, SALINE LOCK AT L.WRIST. ABDOMEN US IN PROCESS. WILL CONTINUE TO MONITOR PATIENT
[2021-07-11] MEDS: PANTOPRAZOLE 40 MG INJ VIAL IVP SCH (10:06)
[2021-07-11] MEDS: FUROSEMIDE 40 MG/4 ML VIAL IVP SCH ×2 (10:07→17:27)
[2021-07-11] MEDS: SPIRONOLACTONE 25 MG TAB PO SCH ×2 (10:08→17:27)
[2021-07-11] MEDS: ASPIRIN 81 MG TAB.CHEW PO SCH (10:08)
[2021-07-11] MEDS: LOSARTAN 50 MG TAB PO SCH ×2 (10:09→21:31)
[2021-07-11] MEDS: ZINC SULF 220 MG CAP PO SCH (10:09)
[2021-07-11] MEDS: carvediloL 12.5 MG TAB PO SCH ×2 (10:10→21:35)
[2021-07-11] MEDS: ATORVASTATIN 20 MG TAB PO SCH (10:10)
[2021-07-11] MEDS: NIFEdipine 90 MG TABER PO SCH (10:10)
[2021-07-11] MEDS: ASCORBIC ACID 500 MG TAB PO SCH (10:12)
[2021-07-11] MEDS: DEXAMETHASONE 4 MG TAB PO SCH (10:12)
[2021-07-11] MEDS: VITAMIN D 400 IU TAB PO SCH ×2 (10:13→21:31)
[2021-07-11] MEDS: CLOPIDOGREL 75 MG TAB PO SCH (10:13)
[2021-07-11] MEDS: POTASSIUM CHLORIDE 10 MEQ TABER PO PRN (10:23)
[2021-07-11 12:00] VITALS: BP 160/80
[2021-07-11] MEDS: REMDESIVIR. 100 MG in NACL 0.9% 100 ML IV SCH (12:05)
[2021-07-11] MEDS: INSULIN LISPRO SLIDING SCALE 100 UNITS/ML VIAL SUBQ PRN ×3 (12:07→22:08)
[2021-07-11] MEDS: ONDANSETRON 4 MG/2 ML VIAL IM/IVP PRN (14:07)
--- NOTE | 2021-07-11 15:16 | NUR ---
RECEIVED PATIENT'S SON CALL FOR UPDATE PATIENT'S CONDITION. PER PATIENT'S SON THAT PATIENT'S HAD DEMENTIA, AND PATIENT NORMAL IS PICKING EATER.
[2021-07-11 16:00] VITALS: BP 141/78
--- NOTE | 2021-07-11 19:43 | NUR ---
ENDORSE PT TO PM SHIFT NURSE THAT PATIENT REST IN BED, SALINE LOCK AT L.WRIST. ABDOMEN US DONE, CHEST X-RAY PENDING
--- NOTE | 2021-07-11 19:45 | NUR ---
GET THE REPORT FROM MORNING NURSE, PATIENT IS LYING ON BED,PATIENT IS ALERT ORIENTED X4, CALL LIGHT IS WITHIN THE REACH,WILL CONTINUE TO MONITOR PATIENT.
[2021-07-11 20:00] VITALS: BP 138/65
--- NOTE | 2021-07-11 20:02 | NUR ---
GET THE REPORT FROM MORNING NURSE MARIO , PATIENT IS LYING ON BED, PATIENT IS ALERT ORIENTED X 2, PATIENT IS RECEIVING OXYGEN VIA NASAL CANNULA AT 2 LITER, CALL LIGHT IS WITHIN THE REACH, WILL CONTINUE TO MONITOR PATIENT.
[2021-07-11] MEDS ORDERED: POTASSIUM CHLORIDE 40 MEQ, LIDOCAINE MPF 1% 25 MG in NACL 0.9% 250 ML IV SCH (21:00)
[2021-07-11] MEDS: INSULIN LANTUS 100 UNITS/ML 10 ML VIAL SUBQ SCH (22:06)
[2021-07-11] MEDS: LEVOFLOXACIN 500 MG/D5W PREMIX 100 ML IV SCH (23:15)
--- NOTE | 2021-07-11 23:26 | NUR ---
PATIENT IS LYING ON BED, VITAL SIGN IS WITHIN THE NORMAL RANGE, PATIENT PULLED OUT HER IV , INSERTED NEW IV ON HER RIGHT WRIST, CALL LIGHT IS WITHIN THE REACH, WILL CONTINUE TO MONITOR PATIENT.
[2021-07-12] VITALS: BP 130/60
--- NOTE | 2021-07-12 00:30 | NUR ---
PATIENT IS LYING ON BED, NO ANY COMPLAIN OF PAIN OR SHORTNESS OF BREATH AT THIS TIME,VITAL SIGN IS WITHIN THE NORMAL RANGE, ALL SCHEDULE MEDICATION IS GIVEN PER DOCTOR ORDER, CALL LIGHT IS WITHIN THE REACH ,WILL CONTINUE TO MONITOR PATIENT.
[2021-07-12] MEDS: HYDRAGUARD CREAM TP SCH ×2 (01:02→12:51)
[2021-07-12 04:00] VITALS: BP 128/61
--- NOTE | 2021-07-12 04:45 | NUR ---
PATIENT IS LYING ON BED, NO ANY COMPLAIN OF PAIN OR SHORTNESS OF BREATH AT THIS TIME,VITAL SIGN IS WITHIN THE NORMAL RANGE, CALL LIGHT IS WITHIN THE REACH ,WILL CONTINUE TO MONITOR PATIENT.
[2021-07-12] MEDS: CLINDAMYCIN 600 MG in DEXTROSE 5% 50 ML IV SCH ×2 (06:16→12:51)
[2021-07-12] MEDS: LEVOTHYROXINE 0.05 MG TAB PO SCH (06:16)
[2021-07-12 06:20] LABS: BASOPHILS % (AUTO) 0.1 % (0.0-2.0); HEMATOCRIT 45.4 % (36-48); HEMOGLOBIN 15.3 g/dL (12.0-16.0); LYMPHOCYTES # (AUTO) 0.7 K/uL (2.5-16.5); LYMPHOCYTES % (AUTO) 19.5 % (20.5-51.1); MEAN CORPUSCULAR HEMOGLOBIN 30 pg (27-31); MEAN CORPUSCULAR HGB CONC 34 g/dL (33-37); MEAN CORPUSCULAR VOLUME 88.3 fL (80-94); MONOCYTES # (AUTO) 0.8 K/uL (0.8-1.0); MONOCYTES % (AUTO) 21.2 % (1.7-9.3); NEUTROPHILS # (AUTO) 2.1 K/uL (1.8-7.7); NEUTROPHILS % (AUTO) 59.2 % (42.2-75.2); PLATELET COUNT (AUTO) 183 K/uL (140-450); RED BLOOD CELL COUNT(AUTO) 5.14 MIL/uL (4.20-5.40); RED CELL DISTRIBUTION WIDTH 13.1 % (11.6-13.7); WHITE BLOOD COUNT (AUTO) 3.5 K/uL (4.8-10.8)
[2021-07-12 06:53] LABS: ANION GAP 13.1 (8-16); CHLORIDE 100 mmol/L (98-107); GLUCOSE 150 mg/dL (74-106); POTASSIUM 4.1 mmol/L (3.5-5.1); SODIUM SERUM 138 mmol/L (136-145); UREA NITROGEN, BLOOD 30 mg/dL (7-18)
[2021-07-12] MEDS: INSULIN LISPRO SLIDING SCALE 100 UNITS/ML VIAL SUBQ PRN ×2 (06:57→12:35)
[2021-07-12] MEDS: BLOOD GLUCOSE MONITORING 1 DEV DEV FS SCH ×2 (06:58→11:30)
--- NOTE | 2021-07-12 06:59 | NUR ---
PATIENT IS LYING ON BED,PATIENT BLOOD SUGAR IS 162 , 2 UNIT INSULIN IS GIVEN PER DOCTOR STEPH, ALL SCHEDULE MEDICATION IS GIVEN PER DOCTOR ORDER, CALL LIGHT IS WITHIN THE REACH, WILL CONTINUE TO MONITOR PATIENT.
[2021-07-12 07:00] LABS: ALBUMIN 3.1 g/dL (3.4-5.0); BILIRUBIN,DIRECT 0.2 mg/dL (0.0-0.3); TOTAL BILIRUBIN 0.5 mg/dL (0.0-1.0)
--- NOTE | 2021-07-12 07:26 | NUR ---
GAVE THE REPORT TO MORNING NURSE MARIO FOR CONTINUES OF CARE PATIENT IS STABLE.
[2021-07-12 08:00] VITALS: BP 142/76
--- NOTE | 2021-07-12 08:55 | NUR ---
RECEIVED ENDORSEMENT FROM PM SHIFT NURSE THAT PATIENT REST IN BED, SALINE LOCK AT R.WRIST 22G. WILL CONTINUE TO MONITOR PATIENT
[2021-07-12] MEDS: ASPIRIN 81 MG TAB.CHEW PO SCH (09:00)
[2021-07-12] MEDS: ATORVASTATIN 20 MG TAB PO SCH (10:24)
[2021-07-12] MEDS: FUROSEMIDE 40 MG/4 ML VIAL IVP SCH (10:25)
[2021-07-12] MEDS: ASCORBIC ACID 500 MG TAB PO SCH (10:27)
[2021-07-12] MEDS: PANTOPRAZOLE 40 MG INJ VIAL IVP SCH (10:32)
[2021-07-12] MEDS: NIFEdipine 90 MG TABER PO SCH (10:33)
[2021-07-12] MEDS: carvediloL 12.5 MG TAB PO SCH (10:33)
[2021-07-12] MEDS: SPIRONOLACTONE 25 MG TAB PO SCH (10:34)
[2021-07-12] MEDS: CLOPIDOGREL 75 MG TAB PO SCH (10:35)
[2021-07-12] MEDS: ZINC SULF 220 MG CAP PO SCH (10:35)
[2021-07-12] MEDS: LOSARTAN 50 MG TAB PO SCH (10:36)
[2021-07-12] MEDS: VITAMIN D 400 IU TAB PO SCH (10:36)
[2021-07-12] MEDS: DEXAMETHASONE 4 MG TAB PO SCH (10:37)
[2021-07-12] MEDS ORDERED: LEVO750T51 PO (10:42)
[2021-07-12] MEDS ORDERED: SPIR50TA PO (10:46)
[2021-07-12] MEDS ORDERED: FURO-572 PO (10:48)
[2021-07-12] MEDS ORDERED: ATOR40TA PO (10:48)
[2021-07-12] MEDS ORDERED: ASPI-1822 PO (10:48)
--- NOTE | 2021-07-12 11:50 | NUR ---
PHYSICAL THERAPY CO-SIGN The Physical Therapy Progress Notes documented by Electric Organ Inspector And Repairer have been reviewed. Reviewed/Co-Signed by: Liz Sandhu Documentation Done by: BRUNO HERNADEZ PTA Addendum: 07/12/21 at 1150 by Liz Sandhu PT Amended: Links added.
[2021-07-12 12:00] VITALS: BP 155/72
[2021-07-12] MEDS: REMDESIVIR. 100 MG in NACL 0.9% 100 ML IV SCH (12:35)
--- NOTE | 2021-07-12 17:56 | NUR ---
D/C PATIENT HOME WITH STABLE CONDITION, NO ACUTE DISTRESS NOTED, IV ACCESS & ARM BAND REMOVED, CONSENT SIGN.
[2021-07-13] MEDS ORDERED: FUROSEMIDE 40 MG TAB PO SCH (09:00)
== END 2021-07-12 16:00 | disposition home or self-care (01) | DRG 871 ==
LOC: MED 18:47 → MMU 21:22 → MIC 07-07 01:12 → MTU 07-09 12:50
PROVIDERS: ADMIT Family Medicine; ATTEND Family Medicine
PROC: 5A09357 Assistance with Respiratory Ventilation, Less than 24 Consecutive Hours, Continuous Positive Airway Pressure (ICD-10-PCS; 2021-07-06)
PROC: XW033E5 Introduction of Remdesivir Anti-infective into Peripheral Vein, Percutaneous Approach, New Technology Group 5 (ICD-10-PCS; principal; 2021-07-09)
DX: A41.89 Other specified sepsis (principal); U07.1 COVID-19; J12.82 Pneumonia due to coronavirus disease 2019; J96.00 Acute respiratory failure, unspecified whether with hypoxia or hypercapnia; I21.A1 Myocardial infarction type 2; I50.43 Acute on chronic combined systolic (congestive) and diastolic (congestive) heart failure; G93.41 Metabolic encephalopathy; I16.1 Hypertensive emergency; E87.1 Hypo-osmolality and hyponatremia; I42.9 Cardiomyopathy, unspecified; E03.9 Hypothyroidism, unspecified; E11.9 Type 2 diabetes mellitus without complications; I25.10 Atherosclerotic heart disease of native coronary artery without angina pectoris; E87.8 Other disorders of electrolyte and fluid balance, not elsewhere classified; I44.7 Left bundle-branch block, unspecified; I11.0 Hypertensive heart disease with heart failure; Z66 Do not resuscitate; E83.51 Hypocalcemia; E87.6 Hypokalemia; Z88.0 Allergy status to penicillin; Z88.8 Allergy status to other drugs, medicaments and biological substances; Z88.1 Allergy status to other antibiotic agents; Z91.018 Allergy to other foods; Z79.899 Other long term (current) drug therapy; Z90.49 Acquired absence of other specified parts of digestive tract; Z86.73 Personal history of transient ischemic attack (TIA), and cerebral infarction without residual deficits; Z51.5 Encounter for palliative care
CPT/HCPCS: 36415; 36600; 51702; 71045; 76705; 80048; 80053; 80076; 81003; 82150; 82803; 82948; 83036; 83605; 83690; 83735; 83880; 84100; 84436; 84439; 84443; 84479; 84484; 85025; 85379; 85610; 85730; 87040; 87081; 87086; 87635-QW; 93005; 94660; 96365; 96372; 96375; 97110; 97112; 97530; 99291; C9113; J0456; J1644; J1815; J1940; J1956; J2001; J2060; J2405; J3480; J3490; J7030; J7060; Q0092